=== PATIENT | male | born 1945 | race Caucasian/White ===

== ENCOUNTER 2021-07-27 16:20 | Inpatient (IN) | payer MEDICARE ==
[~2021-07-27] VITALS: Ht 172.7 cm; Wt 95.4 kg
[~2021-07-27 16:20] MED LIST: HYDR1TAB PO; ONDA4TAB9 PO; ZOF4T PO
[2021-07-27] MEDS ORDERED: NORepinephrine 8mg/ 250ml NS 250 ML IV ONE (22:00)
[2021-07-27 22:15] VITALS: BP 116/56
--- NOTE | 2021-07-27 22:30 | NUR ---
Pt arrived to room 2007, transported by [facility] flight team. Pt transferred to hospital bed from [facility] and placed on our monitor and ventilator. Report received from Dylan RANKIN and questions answered. [facility] packet reviewed and placed in chart. Teleconference done with Dr. Trevino and orders received. Levo infusing through central line and CVP being monitored.
[2021-07-27 22:51] LABS: BASOPHILS % (AUTO) 0.2 % (0-1); EOSINOPHILS % (AUTO) 0 % (0-6); HEMATOCRIT 31.9 % (42.0-52.0); HEMOGLOBIN 10.6 g/dl (14.0-17.9); LYMPHOCYTES # (AUTO) 0.3 X10'3 (1.1-4.8); LYMPHOCYTES % (AUTO) 1.7 % (21-51); MEAN CORPUSCULAR HEMOGLOBIN 30.2 PG (27.0-31.0); MEAN CORPUSCULAR HGB CONC 33.2 g/dL (33.0-36.5); MEAN PLATELET VOLUME 8.2 FL (7.4-10.4); MONOCYTES # (AUTO) 0.4 X10'3 (0-0.9); MONOCYTES % (AUTO) 2.2 % (2-12); NEUTROPHILS # (AUTO) 18.2 X10'3 (1.8-7.7); NEUTROPHILS % (AUTO) 95.9 % (42-75); PLATELET COUNT 252 X10'3 (140-440); RED BLOOD COUNT 3.51 X10'6 (4.70-6.10); RED CELL DISTRIBUTION WIDTH 14.9 % (11.5-14.5); WHITE BLOOD COUNT 18.9 X10'3 (4.5-11.0)
[2021-07-27 22:58] LABS: ABG BASE EXCESS -8.6 mmol/L (-2.0-2.0); ABG HCO3 16.4 mmol/L (22.0-26.0); ABG OXYGEN SATURATION 95.1 % (94-97); ABG PCO2 (T) 31.5 mmHg (35.0-48.0); ALLEN'S TEST POSITIVE; FCOHb 0.3 % (0.0-3.9); FO2Hb 94.8 % (94-97); PATIENT TEMPERATURE 36.5; PEEP 5 cm H2O; RESPIRATORY RATE 16 b/min; TIDAL VOLUME 500 mL; TOTAL HEMOGLOBIN 11.7 G/dl (14.0-18.0)
[2021-07-27 23:00] VITALS: BP 116/56
[2021-07-27] MEDS: midazolam 100mg in NS 100ml 100 ML IV PRN (23:36)
[2021-07-27] MEDS: FENTANYL-0.9 % NACL/PF 100 ML IV PRN (23:37)
[2021-07-27] MEDS ORDERED: NORepinephrine 8mg/ 250ml NS 250 ML IV PRN (23:40)
[2021-07-27 23:54] LABS: ALANINE AMINOTRANSFERASE 50 U/L (12-78); ALBUMIN 1.5 G/DL (3.4-5.0); ALBUMIN/GLOBULIN RATIO 0.3 (1.1-1.5); ALKALINE PHOSPHATASE 84 IU/L (46-116); AMYLASE 222 U/L (25-115); ANION GAP 17 (8-16); ASPARTATE AMINO TRANSFERASE 37 U/L (10-37); BILIRUBIN,TOTAL 0.7 MG/DL (0.1-1.0); BLOOD UREA NITROGEN 101 MG/DL (7-18); BUN/CREATININE RATIO 20.4 (5.4-32.0); CALCIUM 7.4 MG/DL (8.5-10.1); CHLORIDE 107 MMOL/L (99-107); CREATININE 4.95 MG/DL (0.60-1.10); GLUCOSE 182 MG/DL (70-104); LIPASE 100 U/L (73-393); POTASSIUM 4.7 MMOL/L (3.5-5.1); SODIUM 139 MMOL/L (135-145); TOTAL CARBON DIOXIDE 15.5 MMOL/L (24-32); TOTAL PROTEIN 5.9 G/DL (6.4-8.2); eGFR 12 ML/MIN
[2021-07-28] VITALS (24 sets, daily range): BP systolic 95–132; BP diastolic 48–63
[2021-07-28] MEDS: piperacillin/tazo 3.375gm/50ml 50 ML IV SCH ×2 (02:04→12:19)
[2021-07-28] MEDS: heparin, porcine 5000 units/ml vial SQ SCH ×2 (02:05→07:44)
[2021-07-28 03:34] LABS: BASOPHILS % (AUTO) 0 % (0-1); EOSINOPHILS % (AUTO) 0 % (0-6); HEMATOCRIT 31.5 % (42.0-52.0); HEMOGLOBIN 10.3 g/dl (14.0-17.9); LYMPHOCYTES # (AUTO) 0.3 X10'3 (1.1-4.8); LYMPHOCYTES % (AUTO) 1.8 % (21-51); MEAN CORPUSCULAR HEMOGLOBIN 29.8 PG (27.0-31.0); MEAN CORPUSCULAR HGB CONC 32.8 g/dL (33.0-36.5); MEAN CORPUSCULAR VOLUME 90.9 FL (78-98); MEAN PLATELET VOLUME 8.3 FL (7.4-10.4); MONOCYTES # (AUTO) 0.5 X10'3 (0-0.9); MONOCYTES % (AUTO) 2.7 % (2-12); NEUTROPHILS # (AUTO) 16.8 X10'3 (1.8-7.7); NEUTROPHILS % (AUTO) 95.5 % (42-75); PLATELET COUNT 240 X10'3 (140-440); RED BLOOD COUNT 3.46 X10'6 (4.70-6.10); WHITE BLOOD COUNT 17.6 X10'3 (4.5-11.0)
[2021-07-28 03:39] LABS: D-DIMER 2.26 MG/L FEU (0-0.50); PARTIAL THROMBOPLASTIN TIME 43 SECONDS (22-32)
[2021-07-28 03:49] LABS: ALANINE AMINOTRANSFERASE 49 U/L (12-78); ALBUMIN 1.4 G/DL (3.4-5.0); ALBUMIN/GLOBULIN RATIO 0.3 (1.1-1.5); ALKALINE PHOSPHATASE 83 IU/L (46-116); ANION GAP 17 (8-16); ASPARTATE AMINO TRANSFERASE 36 U/L (10-37); BILIRUBIN,TOTAL 0.7 MG/DL (0.1-1.0); BLOOD UREA NITROGEN 101 MG/DL (7-18); BUN/CREATININE RATIO 20.6 (5.4-32.0); C-REACTIVE PROTEIN 14.04 MG/DL (0.0-0.5); CALCIUM 7.1 MG/DL (8.5-10.1); CHLORIDE 109 MMOL/L (99-107); CREATININE 4.91 MG/DL (0.60-1.10); GLUCOSE 135 MG/DL (70-104); LACTATE DEHYDROGENASE 366 U/L (85-227); POTASSIUM 4.9 MMOL/L (3.5-5.1); SODIUM 143 MMOL/L (135-145); TOTAL CARBON DIOXIDE 17.2 MMOL/L (24-32); TOTAL PROTEIN 5.5 G/DL (6.4-8.2); eGFR 12 ML/MIN
--- NOTE | 2021-07-28 03:54 | NUR ---
Pt continuing to do well. Does not follow commands but responds to painful stimuli, strong cough with creamy sputum.
[2021-07-28 04:20] LABS: ABG BASE EXCESS -8.1 mmol/L (-2.0-2.0); ABG HCO3 15.8 mmol/L (22.0-26.0); ABG OXYGEN SATURATION 95.5 % (94-97); ABG PCO2 (T) 26.5 mmHg (35.0-48.0); ABG PO2 (T) 69.7 mmHg (75.0-100.0); ALLEN'S TEST POSITIVE; FCOHb 0.3 % (0.0-3.9); FMetHb 0.1 % (0.0-1.5); FO2Hb 95.1 % (94-97); PATIENT TEMPERATURE 35.8; PEEP 5 cm H2O; RESPIRATORY RATE 16 b/min; TIDAL VOLUME 500 mL; TOTAL HEMOGLOBIN 11.9 G/dl (14.0-18.0)
--- NOTE | 2021-07-28 06:27 | NUR ---
Problems reprioritized. Patient report given, questions answered & plan of care reviewed with Archie RANKIN.
[2021-07-28] MEDS: pantoprazole 40 MG vial IV SCH (07:43)
[2021-07-28] MEDS: dexamethasone 4mg/ml inj IV SCH ×2 (07:44→21:53)
[2021-07-28] MEDS ORDERED: dexamethasone inj 6 MG in normal saline 50ml IV soln 50 ML IV SCH (08:00)
[2021-07-28] MEDS: azithromycin 250mg tablet PO SCH (08:21)
--- NOTE | 2021-07-28 08:46 | NUR ---
Initial: Pt intubated with Covid pneumonia, transferred from another facility for evaluation for possible hemodialysis versus CRRT d/t deteriorating renal function per MD note. Pt documented with an OG tube in place though no TF consult at this time. Will place TF recommendations below for if pt to receive nutrition support. Additional TF recommendations below for IF pt to start CRRT. Will continue to follow closely. Recommendations: 1) IF TF, continuous Vital AF via OGT with goal rate of 80 mL/hr. To begin at 20 mL/hr and advance by 20 mL Q8H as tolerated to goal rate 2) IF TF with CRRT, continuous Vital High Protein via OGT with goal rate of 95 mL/hr. To begin at 35 mL/hr and advance by 20 mL Q8H as tolerated to goal rate 3) IF TF, additional water flushes per MD given renal status 4) IF TF, prealbumin q Friday/, daily scaled weights 5) Routine bowel care Addendum: 07/28/21 at [address] Amended: Links added.
[2021-07-28 09:22] LABS: TROPONIN I 2.11 NG/ML (0.0-0.05)
[2021-07-28] MEDS ORDERED: CALCIUM GLUC 1gm/50ml NACL,iso 100 ML IV ONE ×2 (09:50→15:25)
[2021-07-28] MEDS ORDERED: NO HOME MEDS (11:02)
[2021-07-28] MEDS ORDERED: heparin 10,000 units/1 ML INJ IV PRN (13:50)
[2021-07-28] MEDS ORDERED: albumin (Human) 5% 250ml 250 ML IV ONE (15:25)
[2021-07-28 16:37] LABS: BASOPHILS % (AUTO) 0.1 % (0-1); EOSINOPHILS % (AUTO) 0 % (0-6); LYMPHOCYTES # (AUTO) 0.2 X10'3 (1.1-4.8); LYMPHOCYTES % (AUTO) 1.4 % (21-51); MEAN CORPUSCULAR HEMOGLOBIN 30.1 PG (27.0-31.0); MEAN CORPUSCULAR HGB CONC 33.2 g/dL (33.0-36.5); MEAN CORPUSCULAR VOLUME 90.6 FL (78-98); MEAN PLATELET VOLUME 8.4 FL (7.4-10.4); MONOCYTES # (AUTO) 0.3 X10'3 (0-0.9); MONOCYTES % (AUTO) 1.9 % (2-12); NEUTROPHILS # (AUTO) 15.4 X10'3 (1.8-7.7); NEUTROPHILS % (AUTO) 96.6 % (42-75); PLATELET COUNT 245 X10'3 (140-440); RED BLOOD COUNT 3.64 X10'6 (4.70-6.10); RED CELL DISTRIBUTION WIDTH 15.1 % (11.5-14.5); WHITE BLOOD COUNT 15.9 X10'3 (4.5-11.0)
[2021-07-28 16:48] LABS: CLARITY,URINE CLOUDY (Clear); COLOR,URINE YELLOW (Yellow); GLUCOSE, URINE NEGATIVE (Neg); KETONES,URINE NEGATIVE (Neg); LEUKOCYTE ESTERASE ,URINE NEGATIVE (Neg); NITRITES, URINE NEGATIVE (Neg); OCCULT BLOOD,URINE LARGE (Neg); PROTEIN,URINE TRACE mg/dl (Neg); UA COLLECTION TYPE FOLEY CATH; UROBILINOGEN,URINE 0.2 E.U/dL (0.2-1.0)
[2021-07-28 16:51] LABS: PARTIAL THROMBOPLASTIN TIME 38 SECONDS (22-32)
[2021-07-28 16:55] LABS: BACTERIA,URINE FEW /HPF (Neg); MUCUS STRANDS NONE SEEN /LPF (Neg); RBC,URINE 20-50 /HPF (0-2); SQUAMOUS EPITHELIAL CELL,UR FEW /LPF (FEW)
[2021-07-28 16:56] LABS: AMORPHOUS URATES 2+; URIC ACID CRYSTALS 4+ /HPF (NEGATIVE)
[2021-07-28 17:14] LABS: UA EOSINOPHILS NO EOS /HPF
[2021-07-28] MEDS: heparin 25,000 UNIT/250ml bag 250 ML IV SCH (18:00)
[2021-07-28] MEDS: midazolam 100mg in NS 100ml 100 ML IV PRN (20:02)
[2021-07-28] MEDS: atorvastatin 20mg tablet OGT SCH (21:54)
[2021-07-28] MEDS: FENTANYL-0.9 % NACL/PF 100 ML IV PRN (23:15)
[2021-07-29] VITALS (24 sets, daily range): BP systolic 95–131; BP diastolic 45–59
[2021-07-29] MEDS: piperacillin/tazo 3.375gm/50ml 50 ML IV SCH ×2 (00:55→11:42)
[2021-07-29] MEDS: mineral oil/petrolatum ophthal oint EACHEYE SCH ×4 (02:00→20:14)
[2021-07-29 02:56] LABS: D-DIMER 2.09 MG/L FEU (0-0.50)
[2021-07-29 03:01] LABS: ALANINE AMINOTRANSFERASE 49 U/L (12-78); ALBUMIN 1.5 G/DL (3.4-5.0); ALBUMIN/GLOBULIN RATIO 0.3 (1.1-1.5); ALKALINE PHOSPHATASE 95 IU/L (46-116); AMYLASE 146 U/L (25-115); ANION GAP 13 (8-16); ASPARTATE AMINO TRANSFERASE 41 U/L (10-37); BILIRUBIN,DIRECT 0.7 MG/DL (0-0.3); BLOOD UREA NITROGEN 124 MG/DL (7-18); BUN/CREATININE RATIO 24.1 (5.4-32.0); C-REACTIVE PROTEIN 6.81 MG/DL (0.0-0.5); CALCIUM 7.9 MG/DL (8.5-10.1); CHLORIDE 112 MMOL/L (99-107); CREATININE 5.15 MG/DL (0.60-1.10); GLUCOSE 112 MG/DL (70-104); LACTATE DEHYDROGENASE 404 U/L (85-227); LIPASE 147 U/L (73-393); PHOSPHORUS 5.7 MG/DL (2.3-4.5); POTASSIUM 5.5 MMOL/L (3.5-5.1); SODIUM 143 MMOL/L (135-145); TOTAL CARBON DIOXIDE 18.4 MMOL/L (24-32); TOTAL PROTEIN 5.8 G/DL (6.4-8.2); eGFR 11 ML/MIN
[2021-07-29 03:03] LABS: TROPONIN I 2.31 NG/ML (0.0-0.05)
[2021-07-29 04:04] LABS: ABG BASE EXCESS -9.7 mmol/L (-2.0-2.0); ABG HCO3 15.3 mmol/L (22.0-26.0); ABG PCO2 (T) 29.1 mmHg (35.0-48.0); ABG PO2 (T) 62.2 mmHg (75.0-100.0); ALLEN'S TEST POSITIVE; FCOHb 0.2 % (0.0-3.9); FMetHb 0.3 % (0.0-1.5); FO2Hb 91.5 % (94-97); PATIENT TEMPERATURE 35.9; PEEP 5 cm H2O; RESPIRATORY RATE 16 b/min; TIDAL VOLUME 500 mL; TOTAL HEMOGLOBIN 11.2 G/dl (14.0-18.0)
[2021-07-29 05:06] LABS: BASOPHILS % (AUTO) 0 % (0-1); EOSINOPHILS % (AUTO) 0 % (0-6); HEMATOCRIT 31.1 % (42.0-52.0); HEMOGLOBIN 10.3 g/dl (14.0-17.9); LYMPHOCYTES # (AUTO) 0.3 X10'3 (1.1-4.8); LYMPHOCYTES % (AUTO) 2.3 % (21-51); MEAN CORPUSCULAR HEMOGLOBIN 30.1 PG (27.0-31.0); MEAN CORPUSCULAR HGB CONC 33.2 g/dL (33.0-36.5); MEAN CORPUSCULAR VOLUME 90.9 FL (78-98); MEAN PLATELET VOLUME 8.5 FL (7.4-10.4); MONOCYTES # (AUTO) 0.2 X10'3 (0-0.9); MONOCYTES % (AUTO) 2.1 % (2-12); NEUTROPHILS # (AUTO) 11.1 X10'3 (1.8-7.7); NEUTROPHILS % (AUTO) 95.6 % (42-75); PLATELET COUNT 204 X10'3 (140-440); RED BLOOD COUNT 3.42 X10'6 (4.70-6.10); RED CELL DISTRIBUTION WIDTH 14.9 % (11.5-14.5); WHITE BLOOD COUNT 11.6 X10'3 (4.5-11.0)
--- NOTE | 2021-07-29 06:48 | NUR ---
[facility]. I have received report from Blanca RANKIN and had the opportunity to ask questions and assume patient care. Addendum: 07/29/21 at 0648 by Sunita Aguila RN Amended: Links added.
--- NOTE | 2021-07-29 06:51 | NUR ---
Problems reprioritized. Patient report given, questions answered & plan of care reviewed with Sunita RANKIN.
[2021-07-29] MEDS: pantoprazole 40 MG vial IV SCH (08:13)
[2021-07-29] MEDS: aspirin 81mg tab.chew OGT SCH (08:14)
[2021-07-29] MEDS: azithromycin 250mg tablet PO SCH (08:14)
[2021-07-29] MEDS: dexamethasone 4mg/ml inj IV SCH ×2 (08:14→20:14)
[2021-07-29] MEDS: FENTANYL-0.9 % NACL/PF 100 ML IV PRN ×2 (08:17→19:04)
--- NOTE | 2021-07-29 08:54 | NUR ---
Removed current esophageal temp. probe and replaced and obtained new CXR per Dr. oHpe as it was in right lung.
--- NOTE | 2021-07-29 10:35 | NUR ---
Esophageal temp. probe removed as it is in the lung again per Dr. Hope.
--- NOTE | 2021-07-29 12:39 | NUR ---
Dr. Barnes in to see pt. Notified of low HR and that pt. is off Levo. Provided pt's family's number per his request.
--- NOTE | 2021-07-29 14:36 | NUR ---
TF Consult: Pt remains intubated and sedated. Per RN, pt has not begun HD or CRRT at this time and TF are to start today, see recs below. No BM documented. Will monitor for TF tolerance and adjust needs as medically indicated. Recommendations: 1) Continuous TF using Vital AF via OGT with goal rate of 80 mL/hr to provide 1920ml volume, 2304kcals, 144g protein, 1555ml H2O. To begin at 20 mL/hr and advance by 20 mL Q8H as tolerated to goal rate 2) IF TF with CRRT, continuous Vital High Protein via OGT with goal rate of 95 mL/hr. 3) Additional water flushes per MD given renal status 4) Prealbumin q Friday/, daily scaled weights 5) Routine bowel care Addendum: 07/29/21 at [address] Amended: Links added.
[2021-07-29] MEDS: heparin 25,000 UNIT/250ml bag 250 ML IV SCH (14:50)
--- NOTE | 2021-07-29 15:56 | NUR ---
TF started at 1530. Dr. Ramos in to see pt.
[2021-07-29] MEDS ORDERED: ringers solution, lacted 1,000 ML IV ONE (17:40)
--- NOTE | 2021-07-29 18:16 | NUR ---
Patient in room CICU 2007. I have received report from Sunita RANKIN and had the opportunity to ask questions and assume patient care.
--- NOTE | 2021-07-29 18:25 | NUR ---
Problems reprioritized. Patient report given, questions answered & plan of care reviewed with Bryan RANKIN. Addendum: 07/29/21 at 1826 by Sunita Aguila RN Amended: Links added.
[2021-07-29] MEDS: lactobacillus rhamnosus 10,000 MMU CELLS/CAPSULE PO SCH (20:14)
[2021-07-29] MEDS: atorvastatin 20mg tablet OGT SCH (20:14)
[2021-07-30] VITALS (24 sets, daily range): BP systolic 118–152; BP diastolic 47–73
[2021-07-30] MEDS: piperacillin/tazo 3.375gm/50ml 50 ML IV SCH ×3 (00:33→23:33)
[2021-07-30 01:56] LABS: BASOPHILS % (AUTO) 0 % (0-1); EOSINOPHILS % (AUTO) 0 % (0-6); HEMATOCRIT 33.6 % (42.0-52.0); HEMOGLOBIN 11.3 g/dl (14.0-17.9); LYMPHOCYTES # (AUTO) 0.3 X10'3 (1.1-4.8); LYMPHOCYTES % (AUTO) 2.1 % (21-51); MEAN CORPUSCULAR HGB CONC 33.6 g/dL (33.0-36.5); MEAN CORPUSCULAR VOLUME 89.1 FL (78-98); MONOCYTES # (AUTO) 0.5 X10'3 (0-0.9); MONOCYTES % (AUTO) 3.5 % (2-12); NEUTROPHILS # (AUTO) 12.5 X10'3 (1.8-7.7); NEUTROPHILS % (AUTO) 94.4 % (42-75); PLATELET COUNT 207 X10'3 (140-440); RED BLOOD COUNT 3.77 X10'6 (4.70-6.10); WHITE BLOOD COUNT 13.3 X10'3 (4.5-11.0)
[2021-07-30] MEDS: mineral oil/petrolatum ophthal oint EACHEYE SCH ×4 (02:07→19:46)
[2021-07-30 02:14] LABS: D-DIMER 2.18 MG/L FEU (0-0.50)
[2021-07-30 02:30] LABS: ALANINE AMINOTRANSFERASE 86 U/L (12-78); ALBUMIN 1.6 G/DL (3.4-5.0); ALBUMIN/GLOBULIN RATIO 0.4 (1.1-1.5); ALKALINE PHOSPHATASE 107 IU/L (46-116); ANION GAP 15 (8-16); ASPARTATE AMINO TRANSFERASE 65 U/L (10-37); BILIRUBIN,DIRECT 1.1 MG/DL (0-0.3); BILIRUBIN,TOTAL 1.5 MG/DL (0.1-1.0); BLOOD UREA NITROGEN 136 MG/DL (7-18); BUN/CREATININE RATIO 28.4 (5.4-32.0); C-REACTIVE PROTEIN 3.39 MG/DL (0.0-0.5); CALCIUM 8.2 MG/DL (8.5-10.1); CREATININE 4.79 MG/DL (0.60-1.10); GLUCOSE 122 MG/DL (70-104); LACTATE DEHYDROGENASE 342 U/L (85-227); MAGNESIUM 2.8 MG/DL (1.5-2.4); PHOSPHORUS 5.9 MG/DL (2.3-4.5); POTASSIUM 5.6 MMOL/L (3.5-5.1); PREALBUMIN 22.2 MG/DL (19-36); SODIUM 146 MMOL/L (135-145); TOTAL CARBON DIOXIDE 16.9 MMOL/L (24-32); TOTAL PROTEIN 6.1 G/DL (6.4-8.2); eGFR 12 ML/MIN
[2021-07-30 02:32] LABS: CHLORIDE 114 MMOL/L (99-107)
[2021-07-30 03:49] LABS: ABG BASE EXCESS -9.4 mmol/L (-2.0-2.0); ABG HCO3 14.9 mmol/L (22.0-26.0); ABG OXYGEN SATURATION 89.2 % (94-97); ABG PCO2 (T) 26.8 mmHg (35.0-48.0); ABG PO2 (T) 54.1 mmHg (75.0-100.0); ALLEN'S TEST Yes; FCOHb 0.3 % (0.0-3.9); FO2Hb 88.9 % (94-97); PATIENT TEMPERATURE 36.1; PEEP 5 cm H2O; RESPIRATORY RATE 16 b/min; TIDAL VOLUME 500 mL; TOTAL HEMOGLOBIN 12.3 G/dl (14.0-18.0)
[2021-07-30] MEDS: FENTANYL-0.9 % NACL/PF 100 ML IV PRN ×3 (04:31→22:12)
--- NOTE | 2021-07-30 06:21 | NUR ---
Patient in room CICU 2007. I have received report from Bryan RANKIN and had the opportunity to ask questions and assume patient care.
--- NOTE | 2021-07-30 06:23 | NUR ---
Problems reprioritized. Patient report given, questions answered & plan of care reviewed with Sunita RANKIN.
[2021-07-30] MEDS: aspirin 81mg tab.chew OGT SCH (07:41)
[2021-07-30] MEDS: dexamethasone 4mg/ml inj IV SCH ×2 (07:41→19:46)
[2021-07-30] MEDS: lactobacillus rhamnosus 10,000 MMU CELLS/CAPSULE PO SCH ×2 (07:41→19:46)
[2021-07-30] MEDS: pantoprazole 40 MG vial IV SCH (07:41)
[2021-07-30] MEDS: midazolam 100mg in NS 100ml 100 ML IV PRN (08:10)
--- NOTE | 2021-07-30 11:15 | NUR ---
Dr. Monteiro to see pt. Told RN to please cancel new CDIFF order placed by Dr. Hope.
[2021-07-30] MEDS: heparin, porcine 5000 units/ml vial SQ SCH ×2 (17:41→23:33)
--- NOTE | 2021-07-30 18:11 | NUR ---
Problems reprioritized. Patient report given, questions answered & plan of care reviewed with Bryan RANKIN. Addendum: 07/30/21 at 1812 by Sunita Aguila RN Amended: Links added.
--- NOTE | 2021-07-30 18:20 | NUR ---
Patient in room CICU 2007. I have received report from Sunita RANKIN and had the opportunity to ask questions and assume patient care.
[2021-07-30] MEDS: QUEtiapine 25mg tablet PO SCH (19:45)
[2021-07-30] MEDS: docusate sodium 100mg/10ml UD cup PO SCH (19:45)
[2021-07-30] MEDS ORDERED: heparin, porcine 5000 units/ml vial SQ SCH (20:00)
[2021-07-30] MEDS: atorvastatin 20mg tablet OGT SCH (20:03)
[2021-07-31] VITALS (24 sets, daily range): BP systolic 111–174; BP diastolic 55–78
[2021-07-31] MEDS: mineral oil/petrolatum ophthal oint EACHEYE SCH ×4 (02:13→19:54)
[2021-07-31 03:01] LABS: ABG BASE EXCESS -10.4 mmol/L (-2.0-2.0); ABG HCO3 13.7 mmol/L (22.0-26.0); ABG OXYGEN SATURATION 91.8 % (94-97); ABG PCO2 (T) 25.2 mmHg (35.0-48.0); ABG PO2 (T) 64.8 mmHg (75.0-100.0); ALLEN'S TEST POSITIVE; FCOHb 0.3 % (0.0-3.9); FMetHb 0.3 % (0.0-1.5); FO2Hb 91.2 % (94-97); PATIENT TEMPERATURE 36.5; PEEP 5 cm H2O; RESPIRATORY RATE 16 b/min; TIDAL VOLUME 500 mL; TOTAL HEMOGLOBIN 12.4 G/dl (14.0-18.0)
[2021-07-31 03:06] LABS: BASOPHILS % (AUTO) 0 % (0-1); EOSINOPHILS % (AUTO) 0 % (0-6); HEMATOCRIT 34.5 % (42.0-52.0); HEMOGLOBIN 11.5 g/dl (14.0-17.9); LYMPHOCYTES # (AUTO) 0.2 X10'3 (1.1-4.8); LYMPHOCYTES % (AUTO) 1.6 % (21-51); MEAN CORPUSCULAR HEMOGLOBIN 29.8 PG (27.0-31.0); MEAN CORPUSCULAR HGB CONC 33.4 g/dL (33.0-36.5); MEAN CORPUSCULAR VOLUME 89.2 FL (78-98); MEAN PLATELET VOLUME 9.1 FL (7.4-10.4); MONOCYTES # (AUTO) 0.5 X10'3 (0-0.9); MONOCYTES % (AUTO) 3.6 % (2-12); NEUTROPHILS # (AUTO) 12.3 X10'3 (1.8-7.7); NEUTROPHILS % (AUTO) 94.8 % (42-75); PLATELET COUNT 197 X10'3 (140-440); RED BLOOD COUNT 3.86 X10'6 (4.70-6.10); RED CELL DISTRIBUTION WIDTH 15.3 % (11.5-14.5)
[2021-07-31 03:11] LABS: D-DIMER 4.12 MG/L FEU (0-0.50)
[2021-07-31 03:19] LABS: ALANINE AMINOTRANSFERASE 135 U/L (12-78); ALBUMIN 1.7 G/DL (3.4-5.0); ALBUMIN/GLOBULIN RATIO 0.4 (1.1-1.5); ALKALINE PHOSPHATASE 115 IU/L (46-116); ANION GAP 14 (8-16); ASPARTATE AMINO TRANSFERASE 79 U/L (10-37); BILIRUBIN,DIRECT 0.9 MG/DL (0-0.3); BILIRUBIN,TOTAL 1.2 MG/DL (0.1-1.0); BLOOD UREA NITROGEN 133 MG/DL (7-18); BUN/CREATININE RATIO 34.1 (5.4-32.0); CALCIUM 8.6 MG/DL (8.5-10.1); CHLORIDE 117 MMOL/L (99-107); GLUCOSE 144 MG/DL (70-104); MAGNESIUM 2.3 MG/DL (1.5-2.4); PHOSPHORUS 5.4 MG/DL (2.3-4.5); POTASSIUM 5.9 MMOL/L (3.5-5.1); SODIUM 149 MMOL/L (135-145); TOTAL CARBON DIOXIDE 17.7 MMOL/L (24-32); TOTAL PROTEIN 6.4 G/DL (6.4-8.2); eGFR 15 ML/MIN
[2021-07-31] MEDS: FENTANYL-0.9 % NACL/PF 100 ML IV PRN ×3 (05:38→21:30)
--- NOTE | 2021-07-31 06:13 | NUR ---
Problems reprioritized. Patient report given, questions answered & plan of care reviewed with Sunita RANKIN.
--- NOTE | 2021-07-31 06:14 | NUR ---
[facility] I have received report from Bryan RANKIN and had the opportunity to ask questions and assume patient care. Addendum: 07/31/21 at 0615 by Sunita Aguila RN Amended: Links added.
[2021-07-31] MEDS: QUEtiapine 25mg tablet PO SCH ×2 (07:43→19:39)
[2021-07-31] MEDS: aspirin 81mg tab.chew OGT SCH (07:43)
[2021-07-31] MEDS: docusate sodium 100mg/10ml UD cup PO SCH ×2 (07:43→19:39)
[2021-07-31] MEDS: lactobacillus rhamnosus 10,000 MMU CELLS/CAPSULE PO SCH ×2 (07:43→19:39)
[2021-07-31] MEDS: pantoprazole 40 MG vial IV SCH (07:43)
[2021-07-31] MEDS: heparin, porcine 5000 units/ml vial SQ SCH ×2 (07:44→16:25)
[2021-07-31] MEDS: dexamethasone sod phosphate 10mg/ml inj IV SCH ×2 (08:02→19:40)
--- NOTE | 2021-07-31 10:02 | NUR ---
Received a call from pt's home pharmacy who confirmed pt. does not take any routine meds. Dr. Herminia rodriguez.
--- NOTE | 2021-07-31 11:09 | NUR ---
F/u 07/31: Noted serum Na 149 and to continue hydration per metal leaf layer note; educational technician agreeable w/ free water flushes to start today. Recs below. Recommendations: 1) Continuous TF using Vital AF via OGT with goal rate of 80 mL/hr to provide 1920ml volume, 2304kcals, 144g protein, 1555ml H2O. To begin at 20 mL/hr and advance by 20 mL Q8H as tolerated to goal rate 2) Additional water flushes 200ml Q4H; monitor for adjustment needs 3) Prealbumin q Friday/, daily scaled weights 4) Routine bowel care Addendum: 07/31/21 at [address] Amended: Links added.
[2021-07-31] MEDS: piperacillin/tazo 3.375gm/50ml 50 ML IV SCH (12:30)
[2021-07-31] MEDS: midazolam 100mg in NS 100ml 100 ML IV PRN (12:42)
[2021-07-31] MEDS: sodium bicarbonate (8.4%) inj. 150 MEQ in dextrose 5%-water 1,000 ML IV SCH (12:57)
--- NOTE | 2021-07-31 18:00 | NUR ---
Problems reprioritized. Patient report given, questions answered & plan of care reviewed with NOC RN.
--- NOTE | 2021-07-31 18:16 | NUR ---
Patient in room CICU 2007. I have received report from Sunita RANKIN and had the opportunity to ask questions and assume patient care.
[2021-07-31] MEDS: atorvastatin 20mg tablet OGT SCH (19:53)
[2021-08-01] VITALS (24 sets, daily range): BP systolic 112–179; BP diastolic 54–81
[2021-08-01] MEDS: heparin, porcine 5000 units/ml vial SQ SCH ×4 (00:22→23:46)
[2021-08-01] MEDS: mineral oil/petrolatum ophthal oint EACHEYE SCH ×4 (02:15→20:06)
[2021-08-01 02:55] LABS: BASOPHILS % (AUTO) 0.1 % (0-1); EOSINOPHILS % (AUTO) 0 % (0-6); HEMATOCRIT 32.6 % (42.0-52.0); HEMOGLOBIN 10.8 g/dl (14.0-17.9); LYMPHOCYTES # (AUTO) 0.3 X10'3 (1.1-4.8); LYMPHOCYTES % (AUTO) 1.8 % (21-51); MEAN CORPUSCULAR HEMOGLOBIN 29.6 PG (27.0-31.0); MEAN CORPUSCULAR HGB CONC 33.1 g/dL (33.0-36.5); MEAN CORPUSCULAR VOLUME 89.6 FL (78-98); MEAN PLATELET VOLUME 9.5 FL (7.4-10.4); MONOCYTES # (AUTO) 0.4 X10'3 (0-0.9); MONOCYTES % (AUTO) 2.6 % (2-12); NEUTROPHILS # (AUTO) 13.6 X10'3 (1.8-7.7); NEUTROPHILS % (AUTO) 95.5 % (42-75); PLATELET COUNT 191 X10'3 (140-440); RED BLOOD COUNT 3.63 X10'6 (4.70-6.10); WHITE BLOOD COUNT 14.2 X10'3 (4.5-11.0)
[2021-08-01 03:20] LABS: D-DIMER 4.91 MG/L FEU (0-0.50)
[2021-08-01 03:33] LABS: ALANINE AMINOTRANSFERASE 112 U/L (12-78); ALBUMIN 1.5 G/DL (3.4-5.0); ALBUMIN/GLOBULIN RATIO 0.3 (1.1-1.5); ALKALINE PHOSPHATASE 110 IU/L (46-116); ANION GAP 14 (8-16); ASPARTATE AMINO TRANSFERASE 43 U/L (10-37); BILIRUBIN,DIRECT 0.5 MG/DL (0-0.3); BILIRUBIN,TOTAL 0.9 MG/DL (0.1-1.0); BLOOD UREA NITROGEN 121 MG/DL (7-18); BUN/CREATININE RATIO 37.9 (5.4-32.0); C-REACTIVE PROTEIN 8.71 MG/DL (0.0-0.5); CALCIUM 8.7 MG/DL (8.5-10.1); CHLORIDE 119 MMOL/L (99-107); CREATININE 3.19 MG/DL (0.60-1.10); GLUCOSE 188 MG/DL (70-104); MAGNESIUM 2.4 MG/DL (1.5-2.4); PHOSPHORUS 5.3 MG/DL (2.3-4.5); POTASSIUM 5.5 MMOL/L (3.5-5.1); SODIUM 153 MMOL/L (135-145); TOTAL CARBON DIOXIDE 20.1 MMOL/L (24-32); TOTAL PROTEIN 6.2 G/DL (6.4-8.2); eGFR 19 ML/MIN
[2021-08-01 03:36] LABS: ABG BASE EXCESS -6.1 mmol/L (-2.0-2.0); ABG HCO3 17.4 mmol/L (22.0-26.0); ABG OXYGEN SATURATION 93.3 % (94-97); ABG PCO2 (T) 27.9 mmHg (35.0-48.0); ABG PO2 (T) 66.7 mmHg (75.0-100.0); ALLEN'S TEST POSITIVE; FCOHb 0.3 % (0.0-3.9); FMetHb 0.3 % (0.0-1.5); FO2Hb 92.7 % (94-97); PATIENT TEMPERATURE 36.4; PEEP 5 cm H2O; RESPIRATORY RATE 1 b/min; TIDAL VOLUME 500 mL; TOTAL HEMOGLOBIN 11.7 G/dl (14.0-18.0)
[2021-08-01] MEDS: sodium bicarbonate (8.4%) inj. 150 MEQ in dextrose 5%-water 1,000 ML IV SCH ×2 (04:00→19:57)
[2021-08-01] MEDS: FENTANYL-0.9 % NACL/PF 100 ML IV PRN ×3 (04:00→21:39)
--- NOTE | 2021-08-01 06:23 | NUR ---
Problems reprioritized. Patient report given, questions answered & plan of care reviewed with Teofilo RANKIN.
[2021-08-01] MEDS: aspirin 81mg tab.chew OGT SCH (08:05)
[2021-08-01] MEDS: QUEtiapine 25mg tablet PO SCH (08:05)
[2021-08-01] MEDS: lactobacillus rhamnosus 10,000 MMU CELLS/CAPSULE PO SCH ×2 (08:05→19:58)
[2021-08-01] MEDS: pantoprazole 40 MG vial IV SCH (08:05)
[2021-08-01] MEDS: docusate sodium 100mg/10ml UD cup PO SCH (08:06)
[2021-08-01] MEDS: dexamethasone sod phosphate 10mg/ml inj IV SCH ×2 (08:07→19:59)
[2021-08-01] MEDS: midazolam 100mg in NS 100ml 100 ML IV PRN (10:38)
--- NOTE | 2021-08-01 12:16 | NUR ---
F/u 08/01: Pt remains intubated and sedated, though plan for extubation today per Optometric Technician at rounds. TF continues to run at goal w/ last documented GRV 265ml which is WNL. Per RN, pt w/ low bicarb yesterday, started on Sodium Bicarb drip w/ D5 at 75ml/hr providing 306kcals. TF not adjusted as bicarb drip may stop today per RN. Will continue to monitor. Recommendations: 1) Continuous TF using Vital AF via OGT with goal rate of 80 mL/hr to provide 1920ml volume, 2304kcals, 144g protein, 1555ml H2O. To begin at 20 mL/hr and advance by 20 mL Q8H as tolerated to goal rate 2) Additional water flushes 200ml Q4H; monitor for adjustment needs 3) Prealbumin q Friday/, daily scaled weights 4) Routine bowel care Addendum: 08/01/21 at [address] Amended: Links added.
[2021-08-01] MEDS ORDERED: thiamine inj. 100 MG in normal saline 100ml IV soln 100 ML IV ONE (13:00)
[2021-08-01] MEDS ORDERED: folic acid 1mg/0.2ml inj IV ONE (13:00)
[2021-08-01] MEDS: MULTIVIT-MIN/FERROUS GLUCONATE 9 MG/15 ML LIQUID OGT SCH (14:40)
[2021-08-01] MEDS: dexmedetomidin/NS 400mcg/100ml 100 ML IV SCH ×2 (15:49→23:57)
--- NOTE | 2021-08-01 18:30 | NUR ---
Dr Hope performed bronchoscopy with 2 RT and 1 RN assist, suctioned copious amounts light gan secretions, pt tolerated procedure well versed boluses of 2 mg x 2 given and fentanyl 25mcg x2 given, samples obtained, left with Rachelle rodas RN. Report given to Hamzah Fischer RN.
[2021-08-01] MEDS: QUEtiapine 25mg tablet OGT SCH (19:59)
[2021-08-01] MEDS: docusate sodium 100mg/10ml UD cup OGT SCH (20:00)
[2021-08-01] MEDS: atorvastatin 20mg tablet OGT SCH (20:05)
[2021-08-01 22:15] LABS: BAL RBC 0 /CU MM
[2021-08-01 22:22] LABS: BAL EOS CT 0 %; BAL LYMPH CT 0 %; BAL WBC 5150 /CU MM
[2021-08-02] VITALS (23 sets, daily range): BP systolic 106–187; BP diastolic 50–62
[2021-08-02] MEDS: FENTANYL-0.9 % NACL/PF 100 ML IV PRN ×3 (02:44→19:13)
[2021-08-02] MEDS: mineral oil/petrolatum ophthal oint EACHEYE SCH ×4 (02:46→20:00)
[2021-08-02 03:22] LABS: BASOPHILS % (AUTO) 0.1 % (0-1); EOSINOPHILS % (AUTO) 0.2 % (0-6); HEMOGLOBIN 10.4 g/dl (14.0-17.9); LYMPHOCYTES # (AUTO) 0.3 X10'3 (1.1-4.8); LYMPHOCYTES % (AUTO) 2.1 % (21-51); MEAN CORPUSCULAR HEMOGLOBIN 29.6 PG (27.0-31.0); MEAN CORPUSCULAR HGB CONC 32.6 g/dL (33.0-36.5); MEAN CORPUSCULAR VOLUME 90.8 FL (78-98); MEAN PLATELET VOLUME 9.9 FL (7.4-10.4); MONOCYTES # (AUTO) 0.4 X10'3 (0-0.9); MONOCYTES % (AUTO) 2.9 % (2-12); NEUTROPHILS # (AUTO) 13.8 X10'3 (1.8-7.7); NEUTROPHILS % (AUTO) 94.7 % (42-75); PLATELET COUNT 203 X10'3 (140-440); RED BLOOD COUNT 3.52 X10'6 (4.70-6.10); RED CELL DISTRIBUTION WIDTH 14.8 % (11.5-14.5); WHITE BLOOD COUNT 14.5 X10'3 (4.5-11.0)
[2021-08-02 03:42] LABS: ABG BASE EXCESS 1.1 mmol/L (-2.0-2.0); ABG HCO3 24.5 mmol/L (22.0-26.0); ABG OXYGEN SATURATION 92.8 % (94-97); ABG PCO2 (T) 34.6 mmHg (35.0-48.0); ABG PO2 (T) 66.4 mmHg (75.0-100.0); ALLEN'S TEST POSITIVE; FCOHb 0.3 % (0.0-3.9); FMetHb 0.3 % (0.0-1.5); FO2Hb 92.2 % (94-97); PATIENT TEMPERATURE 37.2; PEEP 5 cm H2O; RESPIRATORY RATE 16 b/min; TIDAL VOLUME 500 mL; TOTAL HEMOGLOBIN 11.3 G/dl (14.0-18.0)
[2021-08-02 03:44] LABS: ALANINE AMINOTRANSFERASE 121 U/L (12-78); ALBUMIN 1.4 G/DL (3.4-5.0); ALBUMIN/GLOBULIN RATIO 0.3 (1.1-1.5); ALKALINE PHOSPHATASE 116 IU/L (46-116); ANION GAP 5 (8-16); ASPARTATE AMINO TRANSFERASE 55 U/L (10-37); BILIRUBIN,DIRECT 0.4 MG/DL (0-0.3); BILIRUBIN,TOTAL 0.7 MG/DL (0.1-1.0); BLOOD UREA NITROGEN 91 MG/DL (7-18); BUN/CREATININE RATIO 39.1 (5.4-32.0); C-REACTIVE PROTEIN 7.84 MG/DL (0.0-0.5); CALCIUM 8.3 MG/DL (8.5-10.1); CHLORIDE 116 MMOL/L (99-107); CREATININE 2.33 MG/DL (0.60-1.10); GLUCOSE 145 MG/DL (70-104); PHOSPHORUS 4.6 MG/DL (2.3-4.5); PREALBUMIN 21.9 MG/DL (19-36); SODIUM 148 MMOL/L (135-145); TOTAL CARBON DIOXIDE 26.7 MMOL/L (24-32); TOTAL PROTEIN 5.9 G/DL (6.4-8.2); eGFR 28 ML/MIN
[2021-08-02 04:33] LABS: D-DIMER 5.17 MG/L FEU (0-0.50)
--- NOTE | 2021-08-02 06:31 | NUR ---
Problems reprioritized. Patient report given, questions answered & plan of care reviewed with Archie.
[2021-08-02] MEDS: lansoprazole 15mg solutab OGT SCH (07:23)
[2021-08-02] MEDS: QUEtiapine 25mg tablet OGT SCH ×2 (07:24→21:10)
[2021-08-02] MEDS: MULTIVIT-MIN/FERROUS GLUCONATE 9 MG/15 ML LIQUID OGT SCH (07:24)
[2021-08-02] MEDS: thiamine 100mg tablet OGT SCH (07:24)
[2021-08-02] MEDS: docusate sodium 100mg/10ml UD cup OGT SCH ×2 (07:24→21:09)
[2021-08-02] MEDS: lactobacillus rhamnosus 10,000 MMU CELLS/CAPSULE PO SCH ×2 (07:24→21:10)
[2021-08-02] MEDS: folic acid 1mg tablet PO SCH (07:24)
[2021-08-02] MEDS: dexamethasone sod phosphate 10mg/ml inj IV SCH ×2 (07:25→21:09)
[2021-08-02] MEDS: heparin, porcine 5000 units/ml vial SQ SCH ×2 (07:25→16:56)
[2021-08-02] MEDS: aspirin 81mg tab.chew OGT SCH (07:26)
[2021-08-02] MEDS: dexmedetomidin/NS 400mcg/100ml 100 ML IV SCH ×3 (09:41→21:10)
[2021-08-02] MEDS: midazolam 100mg in NS 100ml 100 ML IV PRN (15:41)
[2021-08-02] MEDS: atorvastatin 20mg tablet OGT SCH (21:10)
[2021-08-03] VITALS (24 sets, daily range): BP systolic 118–167; BP diastolic 47–70
[2021-08-03] MEDS: methylPREDNISolone sod succ 125mg/2ml vial IV SCH ×3 (00:42→15:06)
[2021-08-03] MEDS: mineral oil/petrolatum ophthal oint EACHEYE SCH ×4 (02:00→20:36)
[2021-08-03] MEDS: midazolam 100mg in NS 100ml 100 ML IV PRN ×3 (03:34→21:36)
[2021-08-03] MEDS: FENTANYL-0.9 % NACL/PF 100 ML IV PRN ×4 (03:59→21:36)
--- NOTE | 2021-08-03 06:00 | NUR ---
Patient in room CICU 2007. I have received report from MAC RN and had the opportunity to ask questions and assume patient care.
[2021-08-03 07:14] LABS: D-DIMER 5.75 MG/L FEU (0-0.50)
[2021-08-03 07:29] LABS: C-REACTIVE PROTEIN 4.63 MG/DL (0.0-0.5)
[2021-08-03 08:01] LABS: ALANINE AMINOTRANSFERASE 288 U/L (12-78); ALBUMIN 1.4 G/DL (3.4-5.0); ALBUMIN/GLOBULIN RATIO 0.3 (1.1-1.5); ALKALINE PHOSPHATASE 157 IU/L (46-116); ANION GAP 10 (8-16); ASPARTATE AMINO TRANSFERASE 153 U/L (10-37); BILIRUBIN,TOTAL 0.8 MG/DL (0.1-1.0); BLOOD UREA NITROGEN 94 MG/DL (7-18); BUN/CREATININE RATIO 45.6 (5.4-32.0); CALCIUM 8.8 MG/DL (8.5-10.1); CHLORIDE 120 MMOL/L (99-107); CREATININE 2.06 MG/DL (0.60-1.10); GLUCOSE 180 MG/DL (70-104); MAGNESIUM 2.1 MG/DL (1.5-2.4); PHOSPHORUS 4.5 MG/DL (2.3-4.5); POTASSIUM 5.4 MMOL/L (3.5-5.1); SODIUM 153 MMOL/L (135-145); TOTAL CARBON DIOXIDE 23.1 MMOL/L (24-32); TOTAL PROTEIN 6.2 G/DL (6.4-8.2); eGFR 32 ML/MIN
[2021-08-03 08:16] LABS: BASOPHILS % (AUTO) 0.1 % (0-1); EOSINOPHILS % (AUTO) 0 % (0-6); HEMATOCRIT 32.3 % (42.0-52.0); HEMOGLOBIN 10.8 g/dl (14.0-17.9); LYMPHOCYTES # (AUTO) 0.2 X10'3 (1.1-4.8); LYMPHOCYTES % (AUTO) 1.7 % (21-51); MEAN CORPUSCULAR HEMOGLOBIN 30.3 PG (27.0-31.0); MEAN CORPUSCULAR HGB CONC 33.4 g/dL (33.0-36.5); MEAN CORPUSCULAR VOLUME 90.8 FL (78-98); MEAN PLATELET VOLUME 10.1 FL (7.4-10.4); MONOCYTES # (AUTO) 0.2 X10'3 (0-0.9); MONOCYTES % (AUTO) 1.4 % (2-12); NEUTROPHILS # (AUTO) 12.4 X10'3 (1.8-7.7); NEUTROPHILS % (AUTO) 96.8 % (42-75); PLATELET COUNT 216 X10'3 (140-440); RED BLOOD COUNT 3.56 X10'6 (4.70-6.10); RED CELL DISTRIBUTION WIDTH 14.8 % (11.5-14.5); WHITE BLOOD COUNT 12.9 X10'3 (4.5-11.0)
[2021-08-03] MEDS ORDERED: PATIROMER CALCIUM SORBITEX 8.4 GM POWD.PACK PO ONE (08:45)
[2021-08-03] MEDS: thiamine 100mg tablet OGT SCH (08:46)
[2021-08-03] MEDS: folic acid 1mg tablet PO SCH (08:46)
[2021-08-03] MEDS: docusate sodium 100mg/10ml UD cup OGT SCH ×2 (08:46→20:36)
[2021-08-03] MEDS: MULTIVIT-MIN/FERROUS GLUCONATE 9 MG/15 ML LIQUID OGT SCH (08:46)
[2021-08-03] MEDS: aspirin 81mg tab.chew OGT SCH (08:47)
[2021-08-03] MEDS: lactobacillus rhamnosus 10,000 MMU CELLS/CAPSULE PO SCH ×2 (08:47→20:36)
[2021-08-03] MEDS: lansoprazole 15mg solutab OGT SCH (08:47)
[2021-08-03] MEDS: QUEtiapine 25mg tablet OGT SCH ×2 (08:47→20:36)
[2021-08-03] MEDS: dexmedetomidine/D5W 100mL 100 ML IV SCH ×3 (08:49→17:25)
--- NOTE | 2021-08-03 10:30 | NUR ---
Informed tele doc Dr. Trevino of K 5.4. Received orders. ordered another ABG and for PICC to be placed.
--- NOTE | 2021-08-03 12:30 | NUR ---
Spoke with daughter Marlene over the phone and gave update on pts condition.
[2021-08-03 13:10] LABS: ABG BASE EXCESS -0.4 mmol/L (-2.0-2.0); ABG HCO3 23.6 mmol/L (22.0-26.0); ABG OXYGEN SATURATION 93.1 % (94-97); ABG PCO2 (T) 35.2 mmHg (35.0-48.0); ABG PO2 (T) 65.5 mmHg (75.0-100.0); ALLEN'S TEST POSITIVE; FCOHb 0.3 % (0.0-3.9); FMetHb 0.2 % (0.0-1.5); FO2Hb 92.6 % (94-97); PATIENT TEMPERATURE 36.3; PEEP 10 cm H2O; RESPIRATORY RATE 16 b/min; TIDAL VOLUME 500 mL; TOTAL HEMOGLOBIN 11.4 G/dl (14.0-18.0)
--- NOTE | 2021-08-03 16:30 | NUR ---
Pt desatting, BP dropped to 70/s systolic with levophed maxed out, HR went down to 32 for a brief period. Dr. Chacon at bedside, ordered to decrease peep to 12. Pt recovered with SaO2 90s, HR now 120s, BP systolic over 100, map above 60. Requested to call family and inform of declining condition. No other new orders at this time. Addendum: 08/03/21 at 1753 by Laila Medrano RN Disregard above note, wrong patient.
--- NOTE | 2021-08-03 17:52 | NUR ---
Delma Anaya called and updated on pts condition. Addendum: 08/03/21 at 1203 by Laila Medrano RN Disregard above note, wrong pt.
--- NOTE | 2021-08-03 18:29 | NUR ---
Problems reprioritized. Patient report given, questions answered & plan of care reviewed with Mac RN.
[2021-08-03] MEDS: enoxaparin 80mg/0.8ml syringe SUBCUT SCH (20:36)
[2021-08-04] VITALS (24 sets, daily range): BP systolic 115–152; BP diastolic 50–65
[2021-08-04] MEDS: methylPREDNISolone sod succ 125mg/2ml vial IV SCH (01:01)
[2021-08-04] MEDS: mineral oil/petrolatum ophthal oint EACHEYE SCH ×4 (02:10→19:59)
[2021-08-04] MEDS: dexmedetomidine/D5W 100mL 100 ML IV SCH ×3 (02:32→17:54)
[2021-08-04 03:12] LABS: ABG BASE EXCESS -0.8 mmol/L (-2.0-2.0); ABG HCO3 23.2 mmol/L (22.0-26.0); ABG OXYGEN SATURATION 92.3 % (94-97); ABG PCO2 (T) 34.7 mmHg (35.0-48.0); ABG PO2 (T) 64.9 mmHg (75.0-100.0); ALLEN'S TEST POSITIVE; FCOHb 0.2 % (0.0-3.9); FMetHb 0.2 % (0.0-1.5); FO2Hb 91.9 % (94-97); PATIENT TEMPERATURE 36.3; PEEP 10 cm H2O; RESPIRATORY RATE 16 b/min; TIDAL VOLUME 16 mL; TOTAL HEMOGLOBIN 11.1 G/dl (14.0-18.0)
[2021-08-04 03:24] LABS: BASOPHILS % (AUTO) 0.1 % (0-1); EOSINOPHILS % (AUTO) 0 % (0-6); HEMATOCRIT 29.9 % (42.0-52.0); HEMOGLOBIN 9.8 g/dl (14.0-17.9); LYMPHOCYTES # (AUTO) 0.4 X10'3 (1.1-4.8); LYMPHOCYTES % (AUTO) 2.9 % (21-51); MEAN CORPUSCULAR HEMOGLOBIN 29.6 PG (27.0-31.0); MEAN CORPUSCULAR HGB CONC 32.8 g/dL (33.0-36.5); MEAN CORPUSCULAR VOLUME 90.3 FL (78-98); MEAN PLATELET VOLUME 10.1 FL (7.4-10.4); MONOCYTES # (AUTO) 0.5 X10'3 (0-0.9); MONOCYTES % (AUTO) 3.4 % (2-12); NEUTROPHILS % (AUTO) 93.6 % (42-75); PLATELET COUNT 218 X10'3 (140-440); RED BLOOD COUNT 3.31 X10'6 (4.70-6.10); RED CELL DISTRIBUTION WIDTH 14.7 % (11.5-14.5)
[2021-08-04 03:34] LABS: ALANINE AMINOTRANSFERASE 345 U/L (12-78); ALBUMIN 1.4 G/DL (3.4-5.0); ALBUMIN/GLOBULIN RATIO 0.3 (1.1-1.5); ALKALINE PHOSPHATASE 146 IU/L (46-116); ANION GAP 8 (8-16); ASPARTATE AMINO TRANSFERASE 119 U/L (10-37); BILIRUBIN,TOTAL 0.7 MG/DL (0.1-1.0); BLOOD UREA NITROGEN 89 MG/DL (7-18); BUN/CREATININE RATIO 46.4 (5.4-32.0); C-REACTIVE PROTEIN 2.34 MG/DL (0.0-0.5); CALCIUM 8.6 MG/DL (8.5-10.1); CHLORIDE 117 MMOL/L (99-107); CREATININE 1.92 MG/DL (0.60-1.10); GLUCOSE 158 MG/DL (70-104); MAGNESIUM 1.9 MG/DL (1.5-2.4); PHOSPHORUS 4.7 MG/DL (2.3-4.5); POTASSIUM 5.1 MMOL/L (3.5-5.1); SODIUM 151 MMOL/L (135-145); TOTAL CARBON DIOXIDE 26.3 MMOL/L (24-32); eGFR 34 ML/MIN
[2021-08-04 03:36] LABS: D-DIMER 5.83 MG/L FEU (0-0.50)
[2021-08-04] MEDS: FENTANYL-0.9 % NACL/PF 100 ML IV PRN ×4 (04:16→23:28)
--- NOTE | 2021-08-04 08:14 | NUR ---
F/u 08/03: Pt remains intubated w/ TF at goal and GRV's steadily increasing 250-400ml past 2 days. Receiving routine colace w/ rectal tube -700ml output 08/02, 400ml 08/01, and 500ml 07/31. Given GRV's and rectal tube output hx pt may benefit from holding stool softener w/ addition of opioid antagonist vs post-pyloric feeds if MD agreeable. Serum Na 151 down from 153 yesterday receiving 200ml Q4H free water and GAEL improving per MD note. Will continue to monitor for TF tolerance and adjustment needs on vent. Recommendations: 1) Continuous TF using Vital AF via OGT with goal rate of 80 mL/hr to provide 1920ml volume, 2304kcals, 144g protein, 1555ml H2O. To begin at 20 mL/hr and advance by 20 mL Q8H as tolerated to goal rate 2) Additional water flushes 200ml Q4H; monitor for adjustment needs 3) Prealbumin q Friday/, daily scaled weights 4) bowel care per rx; consider holding colace and initiating opioid antagonist vs post-pyloric feeds if MD agreeable given rectal tube output 400-700ml past 3 days w/ GRV's 250-400ml Addendum: 08/04/21 at [address] Amended: Links added.
[2021-08-04] MEDS: midazolam 100mg in NS 100ml 100 ML IV PRN ×3 (08:33→23:28)
[2021-08-04] MEDS: lansoprazole 15mg solutab OGT SCH (08:56)
[2021-08-04] MEDS: lactobacillus rhamnosus 10,000 MMU CELLS/CAPSULE PO SCH ×2 (08:56→19:59)
[2021-08-04] MEDS: docusate sodium 100mg/10ml UD cup OGT SCH ×2 (08:56→19:59)
[2021-08-04] MEDS: aspirin 81mg tab.chew OGT SCH (08:56)
[2021-08-04] MEDS: MULTIVIT-MIN/FERROUS GLUCONATE 9 MG/15 ML LIQUID OGT SCH (08:56)
[2021-08-04] MEDS: folic acid 1mg tablet PO SCH (08:56)
[2021-08-04] MEDS: thiamine 100mg tablet OGT SCH (09:03)
[2021-08-04] MEDS: QUEtiapine 25mg tablet OGT SCH ×2 (09:03→19:59)
[2021-08-04] MEDS: methylPREDNISolone sod succ/PF 40mg inj. IV SCH ×2 (16:56→23:27)
--- NOTE | 2021-08-04 18:30 | NUR ---
Patient in room CICU 2007. I have received report from Osmar RANKIN and had the opportunity to ask questions and assume patient care.
[2021-08-04] MEDS: enoxaparin 80mg/0.8ml syringe SUBCUT SCH (19:59)
[2021-08-05] VITALS (24 sets, daily range): BP systolic 108–145; BP diastolic 49–63
[2021-08-05] MEDS: mineral oil/petrolatum ophthal oint EACHEYE SCH ×4 (02:22→20:00)
[2021-08-05 02:29] LABS: ABG BASE EXCESS -3.6 mmol/L (-2.0-2.0); ABG HCO3 20.6 mmol/L (22.0-26.0); ABG OXYGEN SATURATION 92.4 % (94-97); ABG PCO2 (T) 34.1 mmHg (35.0-48.0); ABG PO2 (T) 68.7 mmHg (75.0-100.0); ALLEN'S TEST POSITIVE; FCOHb 0.3 % (0.0-3.9); FMetHb 0.2 % (0.0-1.5); FO2Hb 91.9 % (94-97); PEEP 10 cm H2O; RESPIRATORY RATE 16 b/min; TIDAL VOLUME 500 mL; TOTAL HEMOGLOBIN 10.8 G/dl (14.0-18.0)
[2021-08-05 02:35] LABS: BASOPHILS % (AUTO) 0 % (0-1); EOSINOPHILS % (AUTO) 0 % (0-6); HEMATOCRIT 29.6 % (42.0-52.0); HEMOGLOBIN 9.8 g/dl (14.0-17.9); LYMPHOCYTES # (AUTO) 0.4 X10'3 (1.1-4.8); LYMPHOCYTES % (AUTO) 1.9 % (21-51); MEAN CORPUSCULAR HEMOGLOBIN 30.1 PG (27.0-31.0); MEAN CORPUSCULAR VOLUME 91.2 FL (78-98); MEAN PLATELET VOLUME 10.4 FL (7.4-10.4); MONOCYTES # (AUTO) 0.3 X10'3 (0-0.9); MONOCYTES % (AUTO) 1.8 % (2-12); NEUTROPHILS # (AUTO) 17.5 X10'3 (1.8-7.7); NEUTROPHILS % (AUTO) 96.3 % (42-75); PLATELET COUNT 219 X10'3 (140-440); RED BLOOD COUNT 3.25 X10'6 (4.70-6.10); RED CELL DISTRIBUTION WIDTH 14.7 % (11.5-14.5); WHITE BLOOD COUNT 18.2 X10'3 (4.5-11.0)
[2021-08-05 02:43] LABS: ALANINE AMINOTRANSFERASE 332 U/L (12-78); ALBUMIN 1.5 G/DL (3.4-5.0); ALBUMIN/GLOBULIN RATIO 0.3 (1.1-1.5); ALKALINE PHOSPHATASE 141 IU/L (46-116); ANION GAP 8 (8-16); ASPARTATE AMINO TRANSFERASE 104 U/L (10-37); BILIRUBIN,TOTAL 0.7 MG/DL (0.1-1.0); BLOOD UREA NITROGEN 87 MG/DL (7-18); BUN/CREATININE RATIO 50.9 (5.4-32.0); C-REACTIVE PROTEIN 1.37 MG/DL (0.0-0.5); CALCIUM 8.2 MG/DL (8.5-10.1); CHLORIDE 115 MMOL/L (99-107); CREATININE 1.71 MG/DL (0.60-1.10); GLUCOSE 162 MG/DL (70-104); MAGNESIUM 1.8 MG/DL (1.5-2.4); PHOSPHORUS 4.7 MG/DL (2.3-4.5); POTASSIUM 5.4 MMOL/L (3.5-5.1); SODIUM 148 MMOL/L (135-145); TOTAL CARBON DIOXIDE 25.4 MMOL/L (24-32); TOTAL PROTEIN 5.9 G/DL (6.4-8.2); eGFR 39 ML/MIN
[2021-08-05] MEDS: FENTANYL-0.9 % NACL/PF 100 ML IV PRN ×4 (04:46→21:37)
--- NOTE | 2021-08-05 06:33 | NUR ---
Problems reprioritized. Patient report given, questions answered & plan of care reviewed with Laila RANKIN.
--- NOTE | 2021-08-05 06:33 | NUR ---
Patient in room CICU 2007. I have received report from Ashlyn RANKIN and had the opportunity to ask questions and assume patient care.
[2021-08-05] MEDS: docusate sodium 100mg/10ml UD cup OGT SCH ×2 (07:48→20:00)
[2021-08-05] MEDS: folic acid 1mg tablet PO SCH (07:56)
[2021-08-05] MEDS: lactobacillus rhamnosus 10,000 MMU CELLS/CAPSULE PO SCH ×2 (07:56→20:52)
[2021-08-05] MEDS: QUEtiapine 25mg tablet OGT SCH ×2 (07:56→20:52)
[2021-08-05] MEDS: methylPREDNISolone sod succ/PF 40mg inj. IV SCH ×2 (07:56→15:05)
[2021-08-05] MEDS: aspirin 81mg tab.chew OGT SCH (07:56)
[2021-08-05] MEDS: thiamine 100mg tablet OGT SCH (07:56)
[2021-08-05] MEDS: lansoprazole 15mg solutab OGT SCH (07:56)
[2021-08-05] MEDS: midazolam 100mg in NS 100ml 100 ML IV PRN ×3 (07:57→23:21)
--- NOTE | 2021-08-05 08:31 | NUR ---
Informed Dr. Fisher of K 5.4. No new orders at this time.
[2021-08-05] MEDS: dexmedetomidine/D5W 100mL 100 ML IV SCH ×2 (08:38→10:10)
[2021-08-05] MEDS: MULTIVIT-MIN/FERROUS GLUCONATE 9 MG/15 ML LIQUID OGT SCH (08:44)
[2021-08-05] MEDS ORDERED: glucagon, human recombinant 1mg kit SUBCUT PRN (14:20)
[2021-08-05] MEDS ORDERED: dextrose 50%-water 50ml dispensing syringe IV PRN ×2 (14:20)
[2021-08-05] MEDS: insulin regular, human U-100 3ml vial - multi-dose SQ SCH ×2 (14:25→21:03)
[2021-08-05] MEDS: SODIUM ZIRCONIUM CYCLOSILICATE 10 GM POWD.PACK PO SCH (16:44)
--- NOTE | 2021-08-05 18:24 | NUR ---
Problems reprioritized. Patient report given, questions answered & plan of care reviewed with Bryan RANKIN.
--- NOTE | 2021-08-05 18:25 | NUR ---
Patient in room CICU 2008. I have received report from Laila RANKIN and had the opportunity to ask questions and assume patient care.
[2021-08-05] MEDS: enoxaparin 80mg/0.8ml syringe SUBCUT SCH (20:53)
[2021-08-05] MEDS: insulin glargine (Lantus) pen - multi-dose SQ SCH (21:04)
[2021-08-06] VITALS (23 sets, daily range): BP systolic 111–141; BP diastolic 50–63
[2021-08-06] MEDS: methylPREDNISolone sod succ/PF 40mg inj. IV SCH ×3 (00:30→15:51)
[2021-08-06] MEDS: dexmedetomidine/D5W 100mL 100 ML IV SCH ×3 (00:54→17:10)
[2021-08-06] MEDS: insulin regular, human U-100 3ml vial - multi-dose SQ SCH ×4 (02:11→22:08)
[2021-08-06] MEDS: mineral oil/petrolatum ophthal oint EACHEYE SCH ×4 (02:32→22:05)
[2021-08-06 02:41] LABS: ABG BASE EXCESS -2.5 mmol/L (-2.0-2.0); ABG HCO3 22.1 mmol/L (22.0-26.0); ABG OXYGEN SATURATION 89.6 % (94-97); ABG PCO2 (T) 36.3 mmHg (35.0-48.0); ABG PO2 (T) 57.2 mmHg (75.0-100.0); ALLEN'S TEST POSITIVE; FCOHb 0.3 % (0.0-3.9); FMetHb 0.2 % (0.0-1.5); FO2Hb 89.2 % (94-97); PATIENT TEMPERATURE 36.3; PEEP 10 cm H2O; TOTAL HEMOGLOBIN 10.3 G/dl (14.0-18.0)
[2021-08-06] MEDS: FENTANYL-0.9 % NACL/PF 100 ML IV PRN ×4 (02:54→21:32)
[2021-08-06 03:26] LABS: BASOPHILS % (AUTO) 0.2 % (0-1); EOSINOPHILS % (AUTO) 0 % (0-6); HEMATOCRIT 28.1 % (42.0-52.0); HEMOGLOBIN 9.2 g/dl (14.0-17.9); LYMPHOCYTES # (AUTO) 0.3 X10'3 (1.1-4.8); LYMPHOCYTES % (AUTO) 1.8 % (21-51); MEAN CORPUSCULAR HEMOGLOBIN 29.8 PG (27.0-31.0); MEAN CORPUSCULAR HGB CONC 32.6 g/dL (33.0-36.5); MEAN CORPUSCULAR VOLUME 91.4 FL (78-98); MEAN PLATELET VOLUME 10.4 FL (7.4-10.4); MONOCYTES # (AUTO) 0.7 X10'3 (0-0.9); MONOCYTES % (AUTO) 3.9 % (2-12); NEUTROPHILS # (AUTO) 17.4 X10'3 (1.8-7.7); NEUTROPHILS % (AUTO) 94.1 % (42-75); PLATELET COUNT 208 X10'3 (140-440); RED BLOOD COUNT 3.07 X10'6 (4.70-6.10); RED CELL DISTRIBUTION WIDTH 14.5 % (11.5-14.5); WHITE BLOOD COUNT 18.5 X10'3 (4.5-11.0)
[2021-08-06 03:36] LABS: D-DIMER 3.06 MG/L FEU (0-0.50)
[2021-08-06 03:57] LABS: ALANINE AMINOTRANSFERASE 217 U/L (12-78); ALBUMIN 1.4 G/DL (3.4-5.0); ALBUMIN/GLOBULIN RATIO 0.3 (1.1-1.5); ALKALINE PHOSPHATASE 115 IU/L (46-116); ANION GAP 8 (8-16); ASPARTATE AMINO TRANSFERASE 44 U/L (10-37); BILIRUBIN,TOTAL 0.6 MG/DL (0.1-1.0); BLOOD UREA NITROGEN 81 MG/DL (7-18); BUN/CREATININE RATIO 53.3 (5.4-32.0); C-REACTIVE PROTEIN 1.57 MG/DL (0.0-0.5); CALCIUM 7.9 MG/DL (8.5-10.1); CHLORIDE 113 MMOL/L (99-107); CREATININE 1.52 MG/DL (0.60-1.10); GLUCOSE 149 MG/DL (70-104); MAGNESIUM 1.8 MG/DL (1.5-2.4); PREALBUMIN 31.7 MG/DL (19-36); SODIUM 146 MMOL/L (135-145); TOTAL CARBON DIOXIDE 24.8 MMOL/L (24-32); TOTAL PROTEIN 5.5 G/DL (6.4-8.2); eGFR 45 ML/MIN
[2021-08-06 06:15] LABS: ABG HCO3 22.2 mmol/L (22.0-26.0); ABG OXYGEN SATURATION 90.4 % (94-97); ABG PCO2 (T) 32.2 mmHg (35.0-48.0); ABG PO2 (T) 61.6 mmHg (75.0-100.0); ALLEN'S TEST POSITIVE; FCOHb 0.3 % (0.0-3.9); FMetHb 0.2 % (0.0-1.5); FO2Hb 89.9 % (94-97); PATIENT TEMPERATURE 37.1; PEEP 10 cm H2O; RESPIRATORY RATE 16 b/min; TIDAL VOLUME 500 mL; TOTAL HEMOGLOBIN 11.6 G/dl (14.0-18.0)
--- NOTE | 2021-08-06 06:18 | NUR ---
Problems reprioritized. Patient report given, questions answered & plan of care reviewed with Laila RANKIN.
--- NOTE | 2021-08-06 06:31 | NUR ---
Patient in room CICU 2007. I have received report from Bryan RANKIN and had the opportunity to ask questions and assume patient care.
[2021-08-06] MEDS: midazolam 100mg in NS 100ml 100 ML IV PRN ×3 (06:38→20:57)
[2021-08-06] MEDS: SODIUM ZIRCONIUM CYCLOSILICATE 10 GM POWD.PACK PO SCH (07:14)
[2021-08-06] MEDS: QUEtiapine 25mg tablet OGT SCH ×2 (07:22→22:01)
[2021-08-06] MEDS: MULTIVIT-MIN/FERROUS GLUCONATE 9 MG/15 ML LIQUID OGT SCH (07:22)
[2021-08-06] MEDS: lansoprazole 15mg solutab OGT SCH (07:22)
[2021-08-06] MEDS: folic acid 1mg tablet PO SCH (07:22)
[2021-08-06] MEDS: docusate sodium 100mg/10ml UD cup OGT SCH ×2 (07:23→20:00)
[2021-08-06] MEDS: thiamine 100mg tablet OGT SCH (07:23)
[2021-08-06] MEDS: lactobacillus rhamnosus 10,000 MMU CELLS/CAPSULE PO SCH ×2 (07:23→22:01)
[2021-08-06] MEDS: aspirin 81mg tab.chew OGT SCH (07:32)
--- NOTE | 2021-08-06 18:27 | NUR ---
Problems reprioritized. Patient report given, questions answered & plan of care reviewed with Bryan RANKIN.
[2021-08-06] MEDS: enoxaparin 80mg/0.8ml syringe SUBCUT SCH (22:02)
[2021-08-06] MEDS: insulin glargine (Lantus) pen - multi-dose SQ SCH (22:10)
[2021-08-07] VITALS (24 sets, daily range): BP systolic 103–150; BP diastolic 48–74
[2021-08-07] MEDS: dexmedetomidine/D5W 100mL 100 ML IV SCH ×4 (00:27→18:56)
[2021-08-07] MEDS: methylPREDNISolone sod succ/PF 40mg inj. IV SCH ×3 (00:27→15:37)
[2021-08-07] MEDS: mineral oil/petrolatum ophthal oint EACHEYE SCH ×4 (02:12→20:56)
[2021-08-07] MEDS: insulin regular, human U-100 3ml vial - multi-dose SQ SCH ×4 (02:12→20:33)
[2021-08-07 03:12] LABS: BASOPHILS % (AUTO) 0.1 % (0-1); EOSINOPHILS % (AUTO) 0.1 % (0-6); HEMATOCRIT 32.9 % (42.0-52.0); HEMOGLOBIN 10.8 g/dl (14.0-17.9); LYMPHOCYTES # (AUTO) 0.9 X10'3 (1.1-4.8); LYMPHOCYTES % (AUTO) 4.1 % (21-51); MEAN CORPUSCULAR HGB CONC 32.7 g/dL (33.0-36.5); MEAN CORPUSCULAR VOLUME 91.6 FL (78-98); MEAN PLATELET VOLUME 10.6 FL (7.4-10.4); MONOCYTES % (AUTO) 4.3 % (2-12); NEUTROPHILS # (AUTO) 20.1 X10'3 (1.8-7.7); NEUTROPHILS % (AUTO) 91.4 % (42-75); PLATELET COUNT 266 X10'3 (140-440); RED BLOOD COUNT 3.59 X10'6 (4.70-6.10); RED CELL DISTRIBUTION WIDTH 14.5 % (11.5-14.5)
[2021-08-07 03:22] LABS: D-DIMER 4.12 MG/L FEU (0-0.50)
[2021-08-07 03:23] LABS: ABG BASE EXCESS -5.3 mmol/L (-2.0-2.0); ABG HCO3 18.4 mmol/L (22.0-26.0); ABG OXYGEN SATURATION 93.9 % (94-97); ABG PCO2 (T) 28.9 mmHg (35.0-48.0); ABG PO2 (T) 71.1 mmHg (75.0-100.0); ALLEN'S TEST Modified; FCOHb 0.3 % (0.0-3.9); FMetHb 0.1 % (0.0-1.5); FO2Hb 93.5 % (94-97); PATIENT TEMPERATURE 36.3; PEEP 10 cm H2O; RESPIRATORY RATE 16 b/min; TIDAL VOLUME 500 mL; TOTAL HEMOGLOBIN 9.9 G/dl (14.0-18.0)
[2021-08-07] MEDS: midazolam 100mg in NS 100ml 100 ML IV PRN ×3 (03:26→16:16)
[2021-08-07 03:28] LABS: ALANINE AMINOTRANSFERASE 181 U/L (12-78); ALBUMIN 1.6 G/DL (3.4-5.0); ALBUMIN/GLOBULIN RATIO 0.3 (1.1-1.5); ALKALINE PHOSPHATASE 125 IU/L (46-116); ANION GAP 9 (8-16); ASPARTATE AMINO TRANSFERASE 42 U/L (10-37); BILIRUBIN,TOTAL 0.6 MG/DL (0.1-1.0); BLOOD UREA NITROGEN 76 MG/DL (7-18); BUN/CREATININE RATIO 53.5 (5.4-32.0); CHLORIDE 109 MMOL/L (99-107); CREATININE 1.42 MG/DL (0.60-1.10); GLUCOSE 144 MG/DL (70-104); MAGNESIUM 1.8 MG/DL (1.5-2.4); PHOSPHORUS 3.8 MG/DL (2.3-4.5); POTASSIUM 4.8 MMOL/L (3.5-5.1); SODIUM 141 MMOL/L (135-145); TOTAL CARBON DIOXIDE 23.2 MMOL/L (24-32); TOTAL PROTEIN 6.3 G/DL (6.4-8.2); eGFR 49 ML/MIN
[2021-08-07 05:56] LABS: LARGE PLATELETS FEW; PLATELET ESTIMATE NORMAL
--- NOTE | 2021-08-07 06:00 | NUR ---
Patient in room CICU 2007. I have received report from Bryan RANKIN and had the opportunity to ask questions and assume patient care.
[2021-08-07] MEDS: FENTANYL-0.9 % NACL/PF 100 ML IV PRN ×2 (06:03→15:37)
--- NOTE | 2021-08-07 06:29 | NUR ---
Problems reprioritized. Patient report given, questions answered & plan of care reviewed with Laila RANKIN.
[2021-08-07] MEDS: SODIUM ZIRCONIUM CYCLOSILICATE 10 GM POWD.PACK PO SCH (07:21)
[2021-08-07] MEDS: docusate sodium 100mg/10ml UD cup OGT SCH ×2 (08:00→20:00)
[2021-08-07] MEDS: folic acid 1mg tablet PO SCH (08:45)
[2021-08-07] MEDS: QUEtiapine 25mg tablet OGT SCH ×2 (08:45→20:19)
[2021-08-07] MEDS: lactobacillus rhamnosus 10,000 MMU CELLS/CAPSULE PO SCH ×2 (08:45→20:18)
[2021-08-07] MEDS: aspirin 81mg tab.chew OGT SCH (08:45)
[2021-08-07] MEDS: lansoprazole 15mg solutab OGT SCH (08:45)
[2021-08-07] MEDS: MULTIVIT-MIN/FERROUS GLUCONATE 9 MG/15 ML LIQUID OGT SCH (08:45)
[2021-08-07] MEDS: thiamine 100mg tablet OGT SCH (08:45)
--- NOTE | 2021-08-07 12:32 | NUR ---
F/u 08/07: Pt tolerating TF at goal GRV WNL. Rectal tube -100ml past 24 hours receiving routine colace per EMR. Will continue to monitor for nutrition support tolerance and adjustment needs on vent. Recommendations: 1) Continuous TF using Vital AF via OGT with goal rate of 80 mL/hr to provide 1920ml volume, 2304kcals, 144g protein, 1555ml H2O. To begin at 20 mL/hr and advance by 20 mL Q8H as tolerated to goal rate 2) Additional water flushes 200ml Q4H; monitor for adjustment needs 3) Prealbumin q Friday/, daily scaled weights 4) bowel care per rx; rectal tube output currently WNL from 700ml 08/02 Addendum: 08/07/21 at [address] Amended: Links added.
--- NOTE | 2021-08-07 18:20 | NUR ---
Patient in room CICU 2008. I have received report from Laila RANKIN and had the opportunity to ask questions and assume patient care.
--- NOTE | 2021-08-07 18:21 | NUR ---
Problems reprioritized. Patient report given, questions answered & plan of care reviewed with rByan RANKIN.
[2021-08-07] MEDS: enoxaparin 80mg/0.8ml syringe SUBCUT SCH (20:18)
[2021-08-07] MEDS: insulin glargine (Lantus) pen - multi-dose SQ SCH (20:34)
[2021-08-08] VITALS (22 sets, daily range): BP systolic 97–181; BP diastolic 51–93
[2021-08-08] MEDS: methylPREDNISolone sod succ/PF 40mg inj. IV SCH ×3 (00:13→16:00)
[2021-08-08] MEDS: insulin regular, human U-100 3ml vial - multi-dose SQ SCH ×4 (02:19→19:51)
[2021-08-08] MEDS: mineral oil/petrolatum ophthal oint EACHEYE SCH ×4 (02:20→19:56)
[2021-08-08] MEDS: dexmedetomidine/D5W 100mL 100 ML IV SCH ×6 (02:44→22:33)
[2021-08-08 02:45] LABS: BASOPHILS % (AUTO) 0.1 % (0-1); EOSINOPHILS % (AUTO) 0.1 % (0-6); HEMATOCRIT 31.5 % (42.0-52.0); HEMOGLOBIN 10.2 g/dl (14.0-17.9); LYMPHOCYTES # (AUTO) 0.4 X10'3 (1.1-4.8); LYMPHOCYTES % (AUTO) 2.3 % (21-51); MEAN CORPUSCULAR HEMOGLOBIN 29.6 PG (27.0-31.0); MEAN CORPUSCULAR HGB CONC 32.4 g/dL (33.0-36.5); MEAN CORPUSCULAR VOLUME 91.5 FL (78-98); MEAN PLATELET VOLUME 10.3 FL (7.4-10.4); MONOCYTES # (AUTO) 0.4 X10'3 (0-0.9); MONOCYTES % (AUTO) 2.3 % (2-12); NEUTROPHILS # (AUTO) 18.3 X10'3 (1.8-7.7); NEUTROPHILS % (AUTO) 95.2 % (42-75); PLATELET COUNT 259 X10'3 (140-440); RED BLOOD COUNT 3.44 X10'6 (4.70-6.10); RED CELL DISTRIBUTION WIDTH 14.4 % (11.5-14.5); WHITE BLOOD COUNT 19.2 X10'3 (4.5-11.0)
[2021-08-08] MEDS: FENTANYL-0.9 % NACL/PF 100 ML IV PRN ×5 (02:45→22:31)
[2021-08-08 02:58] LABS: ALANINE AMINOTRANSFERASE 182 U/L (12-78); ALBUMIN 1.4 G/DL (3.4-5.0); ALBUMIN/GLOBULIN RATIO 0.3 (1.1-1.5); ALKALINE PHOSPHATASE 113 IU/L (46-116); ANION GAP 12 (8-16); ASPARTATE AMINO TRANSFERASE 59 U/L (10-37); BILIRUBIN,TOTAL 0.5 MG/DL (0.1-1.0); BLOOD UREA NITROGEN 68 MG/DL (7-18); BUN/CREATININE RATIO 57.6 (5.4-32.0); C-REACTIVE PROTEIN 1.93 MG/DL (0.0-0.5); CALCIUM 7.7 MG/DL (8.5-10.1); CHLORIDE 110 MMOL/L (99-107); CREATININE 1.18 MG/DL (0.60-1.10); GLUCOSE 157 MG/DL (70-104); MAGNESIUM 1.7 MG/DL (1.5-2.4); PHOSPHORUS 3.3 MG/DL (2.3-4.5); POTASSIUM 4.7 MMOL/L (3.5-5.1); SODIUM 143 MMOL/L (135-145); TOTAL CARBON DIOXIDE 20.6 MMOL/L (24-32); TOTAL PROTEIN 5.8 G/DL (6.4-8.2); eGFR 60 ML/MIN
[2021-08-08 03:04] LABS: D-DIMER 3.92 MG/L FEU (0-0.50)
[2021-08-08 03:43] LABS: ABG BASE EXCESS -4.5 mmol/L (-2.0-2.0); ABG HCO3 18.6 mmol/L (22.0-26.0); ABG OXYGEN SATURATION 89.8 % (94-97); ABG PCO2 (T) 27.5 mmHg (35.0-48.0); ABG PO2 (T) 55.2 mmHg (75.0-100.0); ALLEN'S TEST Modified; FCOHb 0.3 % (0.0-3.9); FMetHb 0.1 % (0.0-1.5); FO2Hb 89.4 % (94-97); PATIENT TEMPERATURE 36.4; PEEP 5 cm H2O; TOTAL HEMOGLOBIN 10.6 G/dl (14.0-18.0)
--- NOTE | 2021-08-08 03:57 | NUR ---
Notified MD Lee that patient's morning ABG O2 dropped from 71.1 to 55.2. Informed him that patient's PEEP dropped from 10 to 5 during dayshift and current oxygen saturation is at 94%. No orders received from , states to have daytime MD address decrease in O2 and vent settings.
--- NOTE | 2021-08-08 06:42 | NUR ---
Problems reprioritized. Patient report given, questions answered & plan of care reviewed with DIWOT RN
[2021-08-08] MEDS: MULTIVIT-MIN/FERROUS GLUCONATE 9 MG/15 ML LIQUID OGT SCH (07:29)
[2021-08-08] MEDS: docusate sodium 100mg/10ml UD cup OGT SCH ×2 (07:29→19:56)
[2021-08-08] MEDS: lactobacillus rhamnosus 10,000 MMU CELLS/CAPSULE PO SCH ×2 (07:29→19:56)
[2021-08-08] MEDS: lansoprazole 15mg solutab OGT SCH (07:29)
[2021-08-08] MEDS: QUEtiapine 25mg tablet OGT SCH ×2 (07:29→19:56)
[2021-08-08] MEDS: aspirin 81mg tab.chew OGT SCH (07:30)
[2021-08-08] MEDS: thiamine 100mg tablet OGT SCH (07:30)
[2021-08-08] MEDS: folic acid 1mg tablet PO SCH (07:39)
[2021-08-08] MEDS: SODIUM ZIRCONIUM CYCLOSILICATE 10 GM POWD.PACK PO SCH (07:39)
[2021-08-08] MEDS: midazolam 100mg in NS 100ml 100 ML IV PRN ×2 (18:26→23:58)
[2021-08-08] MEDS: insulin glargine (Lantus) pen - multi-dose SQ SCH (19:53)
[2021-08-08] MEDS: enoxaparin 80mg/0.8ml syringe SUBCUT SCH (19:56)
[2021-08-09] VITALS (24 sets, daily range): BP systolic 81–157; BP diastolic 38–72
[2021-08-09] MEDS: FENTANYL-0.9 % NACL/PF 100 ML IV PRN ×4 (01:55→22:25)
[2021-08-09] MEDS: mineral oil/petrolatum ophthal oint EACHEYE SCH ×4 (01:55→20:32)
[2021-08-09] MEDS: midazolam 100mg in NS 100ml 100 ML IV PRN ×3 (01:56→17:44)
[2021-08-09] MEDS: dexmedetomidine/D5W 100mL 100 ML IV SCH ×5 (03:16→22:04)
[2021-08-09 03:25] LABS: BASOPHILS % (AUTO) 0.2 % (0-1); EOSINOPHILS % (AUTO) 0.1 % (0-6); HEMATOCRIT 29.7 % (42.0-52.0); HEMOGLOBIN 9.9 g/dl (14.0-17.9); LYMPHOCYTES # (AUTO) 0.7 X10'3 (1.1-4.8); LYMPHOCYTES % (AUTO) 3.7 % (21-51); MEAN CORPUSCULAR HEMOGLOBIN 29.8 PG (27.0-31.0); MEAN CORPUSCULAR HGB CONC 33.4 g/dL (33.0-36.5); MEAN CORPUSCULAR VOLUME 89.2 FL (78-98); MEAN PLATELET VOLUME 9.5 FL (7.4-10.4); NEUTROPHILS # (AUTO) 17.1 X10'3 (1.8-7.7); PLATELET COUNT 289 X10'3 (140-440); RED BLOOD COUNT 3.33 X10'6 (4.70-6.10); RED CELL DISTRIBUTION WIDTH 14.7 % (11.5-14.5); WHITE BLOOD COUNT 18.8 X10'3 (4.5-11.0)
[2021-08-09 03:48] LABS: D-DIMER 6.54 MG/L FEU (0-0.50)
[2021-08-09 04:17] LABS: ALANINE AMINOTRANSFERASE 174 U/L (12-78); ALBUMIN 1.5 G/DL (3.4-5.0); ALBUMIN/GLOBULIN RATIO 0.4 (1.1-1.5); ALKALINE PHOSPHATASE 118 IU/L (46-116); ANION GAP 12 (8-16); ASPARTATE AMINO TRANSFERASE 74 U/L (10-37); BILIRUBIN,TOTAL 0.5 MG/DL (0.1-1.0); BLOOD UREA NITROGEN 92 MG/DL (7-18); BUN/CREATININE RATIO 59.4 (5.4-32.0); C-REACTIVE PROTEIN 1.21 MG/DL (0.0-0.5); CALCIUM 7.8 MG/DL (8.5-10.1); CHLORIDE 109 MMOL/L (99-107); CREATININE 1.55 MG/DL (0.60-1.10); GLUCOSE 103 MG/DL (70-104); MAGNESIUM 1.9 MG/DL (1.5-2.4); PHOSPHORUS 3.7 MG/DL (2.3-4.5); POTASSIUM 5.3 MMOL/L (3.5-5.1); PREALBUMIN 34.9 MG/DL (19-36); SODIUM 143 MMOL/L (135-145); TOTAL CARBON DIOXIDE 22.1 MMOL/L (24-32); TOTAL PROTEIN 5.7 G/DL (6.4-8.2); eGFR 44 ML/MIN
[2021-08-09 04:34] LABS: ABG BASE EXCESS -5.8 mmol/L (-2.0-2.0); ABG HCO3 18.7 mmol/L (22.0-26.0); ABG PCO2 (T) 33.1 mmHg (35.0-48.0); ALLEN'S TEST Modified; FCOHb 0.2 % (0.0-3.9); FMetHb 0.3 % (0.0-1.5); FO2Hb 90.5 % (94-97); PEEP 10 cm H2O; RESPIRATORY RATE 16 b/min; TIDAL VOLUME 500 mL; TOTAL HEMOGLOBIN 11.1 G/dl (14.0-18.0)
[2021-08-09 04:45] LABS: TOTAL CELLS COUNTED 100
[2021-08-09 04:46] LABS: PLATELET ESTIMATE NORMAL
[2021-08-09] MEDS: methylPREDNISolone sod succ/PF 40mg inj. IV SCH ×3 (07:14→20:32)
[2021-08-09] MEDS: docusate sodium 100mg/10ml UD cup OGT SCH ×2 (07:15→20:27)
[2021-08-09] MEDS: lansoprazole 15mg solutab OGT SCH (07:15)
[2021-08-09] MEDS: QUEtiapine 25mg tablet OGT SCH ×2 (07:15→20:27)
[2021-08-09] MEDS: MULTIVIT-MIN/FERROUS GLUCONATE 9 MG/15 ML LIQUID OGT SCH (07:15)
[2021-08-09] MEDS: thiamine 100mg tablet OGT SCH (07:15)
[2021-08-09] MEDS: lactobacillus rhamnosus 10,000 MMU CELLS/CAPSULE PO SCH ×2 (07:15→20:26)
[2021-08-09] MEDS: folic acid 1mg tablet PO SCH (07:15)
[2021-08-09] MEDS: aspirin 81mg tab.chew OGT SCH (07:15)
[2021-08-09] MEDS: SODIUM ZIRCONIUM CYCLOSILICATE 10 GM POWD.PACK PO SCH (07:15)
[2021-08-09] MEDS: enoxaparin 80mg/0.8ml syringe SUBCUT SCH ×2 (13:39→20:33)
[2021-08-09] MEDS: insulin regular, human U-100 3ml vial - multi-dose SQ SCH ×2 (15:46→20:00)
[2021-08-09] MEDS: insulin glargine (Lantus) pen - multi-dose SQ SCH (20:01)
[2021-08-10] VITALS (24 sets, daily range): BP systolic 77–149; BP diastolic 24–62
[2021-08-10] MEDS: mineral oil/petrolatum ophthal oint EACHEYE SCH ×4 (02:24→20:00)
[2021-08-10] MEDS: insulin regular, human U-100 3ml vial - multi-dose SQ SCH ×3 (02:51→20:21)
[2021-08-10 03:05] LABS: BASOPHILS % (AUTO) 0.1 % (0-1); EOSINOPHILS % (AUTO) 0.1 % (0-6); HEMATOCRIT 26.8 % (42.0-52.0); HEMOGLOBIN 8.7 g/dl (14.0-17.9); LYMPHOCYTES # (AUTO) 0.3 X10'3 (1.1-4.8); LYMPHOCYTES % (AUTO) 1.6 % (21-51); MEAN CORPUSCULAR HEMOGLOBIN 29.7 PG (27.0-31.0); MEAN CORPUSCULAR HGB CONC 32.4 g/dL (33.0-36.5); MEAN CORPUSCULAR VOLUME 91.8 FL (78-98); MEAN PLATELET VOLUME 9.3 FL (7.4-10.4); MONOCYTES # (AUTO) 0.4 X10'3 (0-0.9); MONOCYTES % (AUTO) 2.3 % (2-12); NEUTROPHILS # (AUTO) 18.9 X10'3 (1.8-7.7); NEUTROPHILS % (AUTO) 95.9 % (42-75); PLATELET COUNT 215 X10'3 (140-440); RED BLOOD COUNT 2.92 X10'6 (4.70-6.10); WHITE BLOOD COUNT 19.7 X10'3 (4.5-11.0)
[2021-08-10 03:20] LABS: D-DIMER 4.19 MG/L FEU (0-0.50)
[2021-08-10] MEDS: midazolam 100mg in NS 100ml 100 ML IV PRN ×2 (03:28→14:18)
[2021-08-10] MEDS: dexmedetomidine/D5W 100mL 100 ML IV SCH ×5 (03:29→17:14)
[2021-08-10 03:32] LABS: ALANINE AMINOTRANSFERASE 115 U/L (12-78); ALBUMIN 1.2 G/DL (3.4-5.0); ALBUMIN/GLOBULIN RATIO 0.3 (1.1-1.5); ALKALINE PHOSPHATASE 110 IU/L (46-116); ANION GAP 10 (8-16); ASPARTATE AMINO TRANSFERASE 37 U/L (10-37); BILIRUBIN,TOTAL 0.9 MG/DL (0.1-1.0); BLOOD UREA NITROGEN 93 MG/DL (7-18); BUN/CREATININE RATIO 56.4 (5.4-32.0); CALCIUM 7.5 MG/DL (8.5-10.1); CHLORIDE 111 MMOL/L (99-107); CREATININE 1.65 MG/DL (0.60-1.10); GLUCOSE 196 MG/DL (70-104); MAGNESIUM 1.9 MG/DL (1.5-2.4); PHOSPHORUS 5.5 MG/DL (2.3-4.5); POTASSIUM 4.9 MMOL/L (3.5-5.1); SODIUM 143 MMOL/L (135-145); TOTAL CARBON DIOXIDE 22.3 MMOL/L (24-32); TOTAL PROTEIN 5.2 G/DL (6.4-8.2); eGFR 41 ML/MIN
[2021-08-10 03:40] LABS: ABG BASE EXCESS -7.1 mmol/L (-2.0-2.0); ABG OXYGEN SATURATION 93.6 % (94-97); ABG PCO2 (T) 43.3 mmHg (35.0-48.0); ABG PO2 (T) 82.9 mmHg (75.0-100.0); ALLEN'S TEST POSITIVE; FCOHb 0.3 % (0.0-3.9); FMetHb 0.1 % (0.0-1.5); FO2Hb 93.2 % (94-97); PATIENT TEMPERATURE 38.4; PEEP 10 cm H2O; RESPIRATORY RATE 16 b/min; TIDAL VOLUME 500 mL; TOTAL HEMOGLOBIN 10.9 G/dl (14.0-18.0)
[2021-08-10] MEDS: docusate sodium 100mg/10ml UD cup OGT SCH ×2 (07:17→20:36)
[2021-08-10] MEDS: methylPREDNISolone sod succ/PF 40mg inj. IV SCH (07:17)
[2021-08-10] MEDS: aspirin 81mg tab.chew OGT SCH (07:17)
[2021-08-10] MEDS: thiamine 100mg tablet OGT SCH (07:17)
[2021-08-10] MEDS: folic acid 1mg tablet PO SCH (07:18)
[2021-08-10] MEDS: lactobacillus rhamnosus 10,000 MMU CELLS/CAPSULE PO SCH ×2 (07:18→21:02)
[2021-08-10] MEDS: MULTIVIT-MIN/FERROUS GLUCONATE 9 MG/15 ML LIQUID OGT SCH (07:18)
[2021-08-10] MEDS: enoxaparin 80mg/0.8ml syringe SUBCUT SCH ×2 (07:19→21:02)
[2021-08-10] MEDS: QUEtiapine 25mg tablet OGT SCH ×2 (07:19→20:36)
[2021-08-10] MEDS: SODIUM ZIRCONIUM CYCLOSILICATE 10 GM POWD.PACK PO SCH (07:19)
[2021-08-10] MEDS: lansoprazole 15mg solutab OGT SCH (07:19)
[2021-08-10] MEDS: NORepinephrine 8mg/ 250ml NS 250 ML IV SCH (10:27)
--- NOTE | 2021-08-10 11:50 | NUR ---
Reassessment: Pt remains intubated and tolerating TF at goal rate with GRV WNL. Noted serum Phos is elevated at this time at 5.5 mg/dL, up from 3.7 mg/dL 08/09, no need for Phos binder at this time per MD at critical care rounds. LBM 08/09, documented with 200 mL stool output from rectal tube per I&O. Pt continues receiving routine bowel care. No changes to nutrition recommendations at this time. Will continue to follow. Recommendations: 1) Continuous TF using Vital AF via OGT with goal rate of 80 mL/hr to provide 1920ml volume, 2304kcals, 144g protein, 1555ml H2O. To begin at 20 mL/hr and advance by 20 mL Q8H as tolerated to goal rate 2) Additional water flushes 200ml Q4H; monitor for adjustment needs 3) Prealbumin q Friday/, daily scaled weights 4) Routine bowel care 5) Monitor serum Phos and need for Phos binder Addendum: 08/10/21 at [address] Amended: Links added.
[2021-08-10] MEDS ORDERED: EPOETIN ALFA-EPBX 20,000 UNIT/ML 1 ML MDV SQ ONE (12:30)
[2021-08-10 13:35] LABS: FERRITIN 713 NG/ML (26-388)
[2021-08-10 13:42] LABS: IRON 13 UG/DL (53-167)
[2021-08-10 13:43] LABS: % IRON SATURATION 6 % (11-46); TOTAL IRON BINDING CAPACITY 204 UG/DL (259-388)
[2021-08-10] MEDS: vancomycin/NS 1 GM ADD-VANTAGE 250 ML X 1 DOSE IV SCH (15:43)
[2021-08-10] MEDS: FENTANYL-0.9 % NACL/PF 100 ML IV PRN (17:15)
[2021-08-10] MEDS: insulin glargine (Lantus) pen - multi-dose SQ SCH (20:26)
[2021-08-10] MEDS: cefepime 2g/NS 100ml ADVANTAGE 100 ML IV SCH (21:01)
[2021-08-10] MEDS ORDERED: acetaminophen 325mg/10.15ml oral unit dose solution PO PRN (22:15)
[2021-08-11] VITALS (24 sets, daily range): BP systolic 87–117; BP diastolic 40–53
[2021-08-11] MEDS: mineral oil/petrolatum ophthal oint EACHEYE SCH ×4 (02:00→20:56)
[2021-08-11 02:30] LABS: ABG HCO3 18.2 mmol/L (22.0-26.0); ABG OXYGEN SATURATION 97.2 % (94-97); ABG PCO2 (T) 43.8 mmHg (35.0-48.0); ABG PO2 (T) 116.1 mmHg (75.0-100.0); ALLEN'S TEST POSITIVE; FCOHb 0.3 % (0.0-3.9); FMetHb 0.4 % (0.0-1.5); FO2Hb 96.5 % (94-97); PATIENT TEMPERATURE 39.2; PEEP 10 cm H2O; RESPIRATORY RATE 16 b/min; TIDAL VOLUME 500 mL; TOTAL HEMOGLOBIN 9.7 G/dl (14.0-18.0)
[2021-08-11] MEDS: insulin regular, human U-100 3ml vial - multi-dose SQ SCH ×4 (03:04→20:11)
[2021-08-11 03:48] LABS: BASOPHILS # (AUTO) 0.1 X10'3 (0-0.2); BASOPHILS % (AUTO) 0.2 % (0-1); EOSINOPHILS # (AUTO) 0.2 X10'3 (0-0.9); EOSINOPHILS % (AUTO) 0.7 % (0-6); HEMATOCRIT 26.8 % (42.0-52.0); HEMOGLOBIN 8.4 g/dl (14.0-17.9); LYMPHOCYTES # (AUTO) 0.2 X10'3 (1.1-4.8); LYMPHOCYTES % (AUTO) 1.2 % (21-51); MEAN CORPUSCULAR HEMOGLOBIN 28.9 PG (27.0-31.0); MEAN CORPUSCULAR HGB CONC 31.4 g/dL (33.0-36.5); MEAN CORPUSCULAR VOLUME 92.2 FL (78-98); MEAN PLATELET VOLUME 9.4 FL (7.4-10.4); MONOCYTES # (AUTO) 0.6 X10'3 (0-0.9); MONOCYTES % (AUTO) 2.9 % (2-12); NEUTROPHILS # (AUTO) 20.4 X10'3 (1.8-7.7); PLATELET COUNT 242 X10'3 (140-440); RED CELL DISTRIBUTION WIDTH 15.1 % (11.5-14.5); WHITE BLOOD COUNT 21.5 X10'3 (4.5-11.0)
[2021-08-11 04:10] LABS: D-DIMER 4.05 MG/L FEU (0-0.50)
[2021-08-11 04:20] LABS: ALANINE AMINOTRANSFERASE 84 U/L (12-78); ALBUMIN 1.1 G/DL (3.4-5.0); ALBUMIN/GLOBULIN RATIO 0.3 (1.1-1.5); ALKALINE PHOSPHATASE 108 IU/L (46-116); ANION GAP 12 (8-16); ASPARTATE AMINO TRANSFERASE 33 U/L (10-37); BILIRUBIN,TOTAL 0.8 MG/DL (0.1-1.0); BLOOD UREA NITROGEN 102 MG/DL (7-18); BUN/CREATININE RATIO 53.4 (5.4-32.0); C-REACTIVE PROTEIN 23.29 MG/DL (0.0-0.5); CALCIUM 7.4 MG/DL (8.5-10.1); CHLORIDE 110 MMOL/L (99-107); CREATININE 1.91 MG/DL (0.60-1.10); GLUCOSE 135 MG/DL (70-104); MAGNESIUM 2.1 MG/DL (1.5-2.4); PHOSPHORUS 5.4 MG/DL (2.3-4.5); POTASSIUM 5.5 MMOL/L (3.5-5.1); SODIUM 142 MMOL/L (135-145); TOTAL CARBON DIOXIDE 20.1 MMOL/L (24-32); TOTAL PROTEIN 5.3 G/DL (6.4-8.2); eGFR 35 ML/MIN
[2021-08-11] MEDS: NORepinephrine 8mg/ 250ml NS 250 ML IV SCH ×2 (04:46→20:05)
[2021-08-11] MEDS: FENTANYL-0.9 % NACL/PF 100 ML IV PRN ×4 (04:50→21:11)
[2021-08-11 05:25] LABS: CLARITY,URINE CLOUDY (Clear); COLOR,URINE YELLOW (Yellow); GLUCOSE, URINE NEGATIVE (Neg); KETONES,URINE NEGATIVE (Neg); LEUKOCYTE ESTERASE ,URINE MODERATE (Neg); NITRITES, URINE NEGATIVE (Neg); OCCULT BLOOD,URINE MODERATE (Neg); PROTEIN,URINE TRACE mg/dl (Neg); UA COLLECTION TYPE FOLEY CATH
[2021-08-11 05:34] LABS: SQUAMOUS EPITHELIAL CELL,UR FEW /LPF (FEW)
[2021-08-11 05:36] LABS: WBC CLUMPS,URINE MODERATE /HPF (NEGATIVE)
[2021-08-11 05:37] LABS: YEAST MANY /HPF (NEGATIVE)
[2021-08-11 05:38] LABS: BACTERIA,URINE NONE SEEN /HPF (Neg); WBC,URINE 30-50 /HPF (0-4)
[2021-08-11 05:39] LABS: CELLULAR CAST 0-4 /LPF (NEGATIVE)
[2021-08-11] MEDS: cefepime 2g/NS 100ml ADVANTAGE 100 ML IV SCH ×2 (07:53→20:48)
[2021-08-11] MEDS: midazolam 100mg in NS 100ml 100 ML IV PRN ×2 (07:53→15:30)
[2021-08-11] MEDS: thiamine 100mg tablet OGT SCH (07:56)
[2021-08-11] MEDS: MULTIVIT-MIN/FERROUS GLUCONATE 9 MG/15 ML LIQUID OGT SCH (07:56)
[2021-08-11] MEDS: lactobacillus rhamnosus 10,000 MMU CELLS/CAPSULE PO SCH ×2 (07:56→20:48)
[2021-08-11] MEDS: docusate sodium 100mg/10ml UD cup OGT SCH ×2 (07:56→20:47)
[2021-08-11] MEDS: QUEtiapine 25mg tablet OGT SCH ×2 (07:56→20:47)
[2021-08-11] MEDS: methylPREDNISolone sod succ/PF 40mg inj. IV SCH (07:56)
[2021-08-11] MEDS: lansoprazole 15mg solutab OGT SCH (07:56)
[2021-08-11] MEDS: SODIUM ZIRCONIUM CYCLOSILICATE 10 GM POWD.PACK PO SCH (07:56)
[2021-08-11] MEDS: aspirin 81mg tab.chew OGT SCH (07:56)
[2021-08-11] MEDS: folic acid 1mg tablet PO SCH (07:56)
[2021-08-11] MEDS: enoxaparin 80mg/0.8ml syringe SUBCUT SCH ×2 (07:57→20:53)
[2021-08-11] MEDS: dexmedetomidine/D5W 100mL 100 ML IV SCH ×4 (08:58→19:16)
[2021-08-11] MEDS: furosemide 40mg/4ml inj IV SCH ×2 (12:28→16:18)
[2021-08-11] MEDS: sodium ferric gluc complex inj 125 MG in normal saline 100ml IV soln 90 ML IV SCH (13:54)
[2021-08-11 14:49] LABS: OCCULT BLOOD STOOL POSITIVE (Neg)
[2021-08-11] MEDS: vancomycin/NS 1 GM ADD-VANTAGE 250 ML X 1 DOSE IV SCH (15:25)
--- NOTE | 2021-08-11 18:24 | NUR ---
Problems reprioritized. Patient report given, questions answered & plan of care reviewed with CHUCHO Neil.
[2021-08-11] MEDS: insulin glargine (Lantus) pen - multi-dose SQ SCH (20:12)
[2021-08-12] VITALS (24 sets, daily range): BP systolic 100–148; BP diastolic 45–72
[2021-08-12] MEDS: FENTANYL-0.9 % NACL/PF 100 ML IV PRN ×5 (01:54→22:02)
[2021-08-12] MEDS: dexmedetomidine/D5W 100mL 100 ML IV SCH ×7 (01:55→22:57)
[2021-08-12] MEDS: mineral oil/petrolatum ophthal oint EACHEYE SCH ×4 (02:13→20:44)
[2021-08-12] MEDS: furosemide 40mg/4ml inj IV SCH ×4 (02:15→23:47)
[2021-08-12 03:39] LABS: BASOPHILS % (AUTO) 0.2 % (0-1); EOSINOPHILS % (AUTO) 0.2 % (0-6); HEMATOCRIT 22.2 % (42.0-52.0); LYMPHOCYTES # (AUTO) 0.4 X10'3 (1.1-4.8); LYMPHOCYTES % (AUTO) 2.8 % (21-51); MEAN CORPUSCULAR HEMOGLOBIN 29.3 PG (27.0-31.0); MEAN CORPUSCULAR HGB CONC 31.6 g/dL (33.0-36.5); MEAN CORPUSCULAR VOLUME 92.8 FL (78-98); MEAN PLATELET VOLUME 8.8 FL (7.4-10.4); MONOCYTES # (AUTO) 0.6 X10'3 (0-0.9); MONOCYTES % (AUTO) 4.1 % (2-12); NEUTROPHILS % (AUTO) 92.7 % (42-75); PLATELET COUNT 185 X10'3 (140-440); RED BLOOD COUNT 2.39 X10'6 (4.70-6.10); RED CELL DISTRIBUTION WIDTH 15.3 % (11.5-14.5); WHITE BLOOD COUNT 14.1 X10'3 (4.5-11.0)
[2021-08-12 03:49] LABS: D-DIMER 3.25 MG/L FEU (0-0.50)
[2021-08-12 03:56] LABS: ALANINE AMINOTRANSFERASE 66 U/L (12-78); ALBUMIN 0.9 G/DL (3.4-5.0); ALBUMIN/GLOBULIN RATIO 0.2 (1.1-1.5); ALKALINE PHOSPHATASE 97 IU/L (46-116); ANION GAP 11 (8-16); ASPARTATE AMINO TRANSFERASE 27 U/L (10-37); BILIRUBIN,TOTAL 0.5 MG/DL (0.1-1.0); BLOOD UREA NITROGEN 119 MG/DL (7-18); BUN/CREATININE RATIO 54.1 (5.4-32.0); C-REACTIVE PROTEIN 23.29 MG/DL (0.0-0.5); CALCIUM 7.2 MG/DL (8.5-10.1); CHLORIDE 106 MMOL/L (99-107); GLUCOSE 171 MG/DL (70-104); POTASSIUM 5.2 MMOL/L (3.5-5.1); SODIUM 138 MMOL/L (135-145); TOTAL CARBON DIOXIDE 21.2 MMOL/L (24-32); eGFR 29 ML/MIN
[2021-08-12 04:22] LABS: ABG BASE EXCESS -9.4 mmol/L (-2.0-2.0); ABG HCO3 17.3 mmol/L (22.0-26.0); ABG OXYGEN SATURATION 93.5 % (94-97); ABG PCO2 (T) 41.2 mmHg (35.0-48.0); ABG PO2 (T) 76.4 mmHg (75.0-100.0); ALLEN'S TEST POSITIVE; FCOHb 0.3 % (0.0-3.9); FMetHb 0.3 % (0.0-1.5); FO2Hb 92.9 % (94-97); PEEP 10 cm H2O; RESPIRATORY RATE 16 b/min; TIDAL VOLUME 500 mL; TOTAL HEMOGLOBIN 7.9 G/dl (14.0-18.0)
[2021-08-12] MEDS: midazolam 100mg in NS 100ml 100 ML IV PRN ×3 (05:35→17:22)
[2021-08-12] MEDS: MULTIVIT-MIN/FERROUS GLUCONATE 9 MG/15 ML LIQUID OGT SCH (08:11)
[2021-08-12] MEDS: docusate sodium 100mg/10ml UD cup OGT SCH ×2 (08:11→20:44)
[2021-08-12] MEDS: SODIUM ZIRCONIUM CYCLOSILICATE 10 GM POWD.PACK PO SCH (08:11)
[2021-08-12] MEDS: lansoprazole 15mg solutab OGT SCH (08:13)
[2021-08-12] MEDS: thiamine 100mg tablet OGT SCH (08:13)
[2021-08-12] MEDS: aspirin 81mg tab.chew OGT SCH (08:13)
[2021-08-12] MEDS: lactobacillus rhamnosus 10,000 MMU CELLS/CAPSULE PO SCH ×2 (08:13→20:44)
[2021-08-12] MEDS: cefepime 2g/NS 100ml ADVANTAGE 100 ML IV SCH ×2 (08:13→20:43)
[2021-08-12] MEDS: QUEtiapine 25mg tablet OGT SCH ×2 (08:13→20:44)
[2021-08-12] MEDS: methylPREDNISolone sod succ/PF 40mg inj. IV SCH (08:14)
[2021-08-12] MEDS: folic acid 1mg tablet PO SCH (08:14)
[2021-08-12] MEDS: insulin regular, human U-100 3ml vial - multi-dose SQ SCH ×3 (08:19→20:54)
[2021-08-12] MEDS: NORepinephrine 8mg/ 250ml NS 250 ML IV SCH ×2 (09:16→11:16)
--- NOTE | 2021-08-12 10:00 | NUR ---
New DTI noted upon assessment this am. Pics obtained for chart, WOC consult ordered and foam dressing applied as there was not a dressing in place yet.
[2021-08-12] MEDS: sodium ferric gluc complex inj 125 MG in normal saline 100ml IV soln 90 ML IV SCH (10:48)
--- NOTE | 2021-08-12 10:57 | NUR ---
1 unit PRBC transfused this am with no adverse reaction.
--- NOTE | 2021-08-12 12:00 | NUR ---
ROUNDS NOTE: Dr. Rausch aware of mouth bleeding, low H/H and 1 unit PRBC given, Lovenox being on hold per noc MD, current vent settings and VS. Ordered 6 hour spot urines and volume.
[2021-08-12] MEDS: vancomycin/NS 1 GM ADD-VANTAGE 250 ML X 1 DOSE IV SCH (13:54)
[2021-08-12] MEDS ORDERED: tPA-cathflo 2 MG/2 ml IV flush IVF ONE (17:25)
--- NOTE | 2021-08-12 18:25 | NUR ---
Patient in room CICU 2007. I have received report from Sunita RANKIN and had the opportunity to ask questions and assume patient care.
--- NOTE | 2021-08-12 18:26 | NUR ---
Problems reprioritized. Patient report given, questions answered & plan of care reviewed with Bryan RANKIN. Addendum: 08/12/21 at 1826 by Sunita Aguila RN Amended: Links added.
--- NOTE | 2021-08-12 19:00 | NUR ---
Total of 1100 ml of urine drained from gaytan bag. Urine timed from 1300 to 1900 per MD orders.
[2021-08-12 20:00] LABS: TOTAL PROTEIN,URINE RANDOM 42.4 MG/DL
[2021-08-12] MEDS: insulin glargine (Lantus) pen - multi-dose SQ SCH (20:55)
[2021-08-13] VITALS (24 sets, daily range): BP systolic 85–153; BP diastolic 44–64
[2021-08-13] MEDS: midazolam 100mg in NS 100ml 100 ML IV PRN ×3 (00:22→15:58)
[2021-08-13] MEDS: mineral oil/petrolatum ophthal oint EACHEYE SCH ×4 (02:14→20:10)
[2021-08-13] MEDS: dexmedetomidine/D5W 100mL 100 ML IV SCH ×4 (02:27→21:05)
[2021-08-13] MEDS: insulin regular, human U-100 3ml vial - multi-dose SQ SCH ×4 (03:09→20:16)
[2021-08-13 03:15] LABS: BASOPHILS # (AUTO) 0.1 X10'3 (0-0.2); BASOPHILS % (AUTO) 0.4 % (0-1); EOSINOPHILS # (AUTO) 0.1 X10'3 (0-0.9); EOSINOPHILS % (AUTO) 0.7 % (0-6); HEMATOCRIT 24.2 % (42.0-52.0); HEMOGLOBIN 8.2 g/dl (14.0-17.9); LYMPHOCYTES # (AUTO) 0.6 X10'3 (1.1-4.8); LYMPHOCYTES % (AUTO) 4.2 % (21-51); MEAN CORPUSCULAR HEMOGLOBIN 30.6 PG (27.0-31.0); MEAN CORPUSCULAR HGB CONC 33.9 g/dL (33.0-36.5); MEAN CORPUSCULAR VOLUME 90.2 FL (78-98); MONOCYTES # (AUTO) 0.6 X10'3 (0-0.9); MONOCYTES % (AUTO) 4.2 % (2-12); NEUTROPHILS # (AUTO) 12.9 X10'3 (1.8-7.7); NEUTROPHILS % (AUTO) 90.5 % (42-75); PLATELET COUNT 192 X10'3 (140-440); RED BLOOD COUNT 2.68 X10'6 (4.70-6.10); RED CELL DISTRIBUTION WIDTH 15.2 % (11.5-14.5); WHITE BLOOD COUNT 14.3 X10'3 (4.5-11.0)
[2021-08-13] MEDS: FENTANYL-0.9 % NACL/PF 100 ML IV PRN ×4 (03:41→22:40)
[2021-08-13 03:43] LABS: ABG HCO3 17.9 mmol/L (22.0-26.0); ABG OXYGEN SATURATION 93.8 % (94-97); ABG PCO2 (T) 39.1 mmHg (35.0-48.0); ABG PO2 (T) 79.4 mmHg (75.0-100.0); ALLEN'S TEST POSITIVE; FCOHb 0.1 % (0.0-3.9); FO2Hb 93.7 % (94-97); PATIENT TEMPERATURE 37.5; PEEP 10 cm H2O; RESPIRATORY RATE 16 b/min; TIDAL VOLUME 500 mL; TOTAL HEMOGLOBIN 9.1 G/dl (14.0-18.0)
[2021-08-13 03:51] LABS: ALANINE AMINOTRANSFERASE 60 U/L (12-78); ALBUMIN/GLOBULIN RATIO 0.2 (1.1-1.5); ALKALINE PHOSPHATASE 91 IU/L (46-116); ANION GAP 11 (8-16); ASPARTATE AMINO TRANSFERASE 24 U/L (10-37); BILIRUBIN,TOTAL 0.5 MG/DL (0.1-1.0); BLOOD UREA NITROGEN 126 MG/DL (7-18); BUN/CREATININE RATIO 58.6 (5.4-32.0); CALCIUM 7.2 MG/DL (8.5-10.1); CHLORIDE 109 MMOL/L (99-107); CREATININE 2.15 MG/DL (0.60-1.10); GLUCOSE 150 MG/DL (70-104); MAGNESIUM 2.1 MG/DL (1.5-2.4); PHOSPHORUS 6.1 MG/DL (2.3-4.5); POTASSIUM 4.7 MMOL/L (3.5-5.1); PREALBUMIN 16.4 MG/DL (19-36); SODIUM 141 MMOL/L (135-145); TOTAL PROTEIN 5.2 G/DL (6.4-8.2); eGFR 30 ML/MIN
--- NOTE | 2021-08-13 06:19 | NUR ---
Problems reprioritized. Patient report given, questions answered & plan of care reviewed with Sunita RANKIN.
--- NOTE | 2021-08-13 06:55 | NUR ---
Patient in room CICU 2007. I have received report from Bryan RANKIN and had the opportunity to ask questions and assume patient care.
[2021-08-13] MEDS: docusate sodium 100mg/10ml UD cup OGT SCH ×2 (07:38→20:05)
[2021-08-13] MEDS: folic acid 1mg tablet PO SCH (07:38)
[2021-08-13] MEDS: furosemide 40mg/4ml inj IV SCH ×2 (07:38→15:37)
[2021-08-13] MEDS: lactobacillus rhamnosus 10,000 MMU CELLS/CAPSULE PO SCH ×2 (07:38→20:06)
[2021-08-13] MEDS: MULTIVIT-MIN/FERROUS GLUCONATE 9 MG/15 ML LIQUID OGT SCH (07:38)
[2021-08-13] MEDS: thiamine 100mg tablet OGT SCH (07:38)
[2021-08-13] MEDS: aspirin 81mg tab.chew OGT SCH (07:38)
[2021-08-13] MEDS: lansoprazole 15mg solutab OGT SCH (07:38)
[2021-08-13] MEDS: cefepime 2g/NS 100ml ADVANTAGE 100 ML IV SCH (07:39)
--- NOTE | 2021-08-13 07:46 | NUR ---
ETT FOUND AT 21 CM AT THE TEETH. ADVANCED BACK TO 24 CM AT THE TEETH. Addendum: 08/13/21 at 0747 by [address] RT Amended: Links added.
[2021-08-13] MEDS: QUEtiapine 25mg tablet OGT SCH ×2 (07:50→20:05)
[2021-08-13] MEDS: SODIUM ZIRCONIUM CYCLOSILICATE 10 GM POWD.PACK PO SCH (07:51)
[2021-08-13] MEDS: methylPREDNISolone sod succ/PF 40mg inj. IV SCH (08:03)
[2021-08-13] MEDS: sodium ferric gluc complex inj 125 MG in normal saline 100ml IV soln 90 ML IV SCH (09:07)
--- NOTE | 2021-08-13 11:50 | NUR ---
F/u 08/13: Pt +18.5L fluid balance started on lasix w/ free water to be held at this time per nutrition technician; updated recs below. Temporarily out of Vital AF and Vital High Protein formulas until tomorrow; Nepro 1.8 to run at half current goal rate temporarily given high calorie density; TAMMY d/w RN. Recommendations: 1) Continuous TF using Vital AF via OGT with goal rate of 80 mL/hr to provide 1920ml volume, 2304kcals, 144g protein, 1555ml H2O. To begin at 20 mL/hr and advance by 20 mL Q8H as tolerated to goal rate 2) Additional water flushes per nutrition technician; +18.5L fluid balance 3) Prealbumin q Friday/, daily scaled weights 4) Routine bowel care 5) Monitor serum Phos and need for Phos binder per MD 6) Continue routine MVM with iron, Thiamine, and Folic acid for EtOH hx Addendum: 08/13/21 at [address] Amended: Links added.
[2021-08-13] MEDS: pantoprazole 40MG/NS 100ML BAG 100 ML IV SCH ×3 (12:01→22:31)
--- NOTE | 2021-08-13 12:08 | NUR ---
Lyle MUNOZ stated to dc water flushes.
[2021-08-13] MEDS ORDERED: VANCOMYCIN LEVEL IV ONE (13:30)
[2021-08-13] MEDS ORDERED: EPOETIN ALFA-EPBX 20,000 UNIT/ML 1 ML MDV SQ ONE (14:00)
[2021-08-13] MEDS: vancomycin/NS 1 GM ADD-VANTAGE 250 ML X 1 DOSE IV SCH ×2 (14:00→15:18)
[2021-08-13] MEDS: NORepinephrine 8mg/ 250ml NS 250 ML IV SCH (16:50)
--- NOTE | 2021-08-13 18:15 | NUR ---
Patient in room CICU 2007. I have received report from Sunita RANKIN and had the opportunity to ask questions and assume patient care.
--- NOTE | 2021-08-13 18:19 | NUR ---
Problems reprioritized. Patient report given, questions answered & plan of care reviewed with Bryan RANKIN. Addendum: 08/13/21 at 1820 by Sunita Aguila RN Amended: Links added.
[2021-08-13] MEDS: enoxaparin 30mg/0.3ml syringe SUBCUT SCH (20:17)
[2021-08-13] MEDS: insulin glargine (Lantus) pen - multi-dose SQ SCH (20:17)
[2021-08-14] VITALS (24 sets, daily range): BP systolic 90–152; BP diastolic 44–81
[2021-08-14] MEDS: furosemide 40mg/4ml inj IV SCH ×4 (00:13→23:01)
[2021-08-14] MEDS: pantoprazole 40MG/NS 100ML BAG 100 ML IV SCH ×5 (02:15→23:01)
[2021-08-14] MEDS: insulin regular, human U-100 3ml vial - multi-dose SQ SCH ×4 (02:17→20:56)
[2021-08-14] MEDS: mineral oil/petrolatum ophthal oint EACHEYE SCH ×4 (02:17→19:14)
[2021-08-14] MEDS: midazolam 100mg in NS 100ml 100 ML IV PRN ×4 (02:29→21:15)
[2021-08-14 03:11] LABS: BASOPHILS # (AUTO) 0.1 X10'3 (0-0.2); BASOPHILS % (AUTO) 0.4 % (0-1); EOSINOPHILS # (AUTO) 0.2 X10'3 (0-0.9); EOSINOPHILS % (AUTO) 1.6 % (0-6); HEMATOCRIT 29.5 % (42.0-52.0); HEMOGLOBIN 9.5 g/dl (14.0-17.9); LYMPHOCYTES # (AUTO) 0.8 X10'3 (1.1-4.8); LYMPHOCYTES % (AUTO) 5.3 % (21-51); MEAN CORPUSCULAR HEMOGLOBIN 29.5 PG (27.0-31.0); MEAN CORPUSCULAR HGB CONC 32.1 g/dL (33.0-36.5); MEAN CORPUSCULAR VOLUME 91.7 FL (78-98); MEAN PLATELET VOLUME 8.8 FL (7.4-10.4); MONOCYTES # (AUTO) 0.7 X10'3 (0-0.9); MONOCYTES % (AUTO) 4.7 % (2-12); NEUTROPHILS # (AUTO) 13.3 X10'3 (1.8-7.7); PLATELET COUNT 218 X10'3 (140-440); RED BLOOD COUNT 3.21 X10'6 (4.70-6.10); RED CELL DISTRIBUTION WIDTH 15.4 % (11.5-14.5); WHITE BLOOD COUNT 15.1 X10'3 (4.5-11.0)
[2021-08-14] MEDS: dexmedetomidine/D5W 100mL 100 ML IV SCH ×5 (03:13→23:00)
[2021-08-14 03:20] LABS: ABG BASE EXCESS -8.2 mmol/L (-2.0-2.0); ABG HCO3 18.8 mmol/L (22.0-26.0); ABG OXYGEN SATURATION 88.8 % (94-97); ABG PCO2 (T) 43.4 mmHg (35.0-48.0); ABG PO2 (T) 58.9 mmHg (75.0-100.0); ALLEN'S TEST POSITIVE; FCOHb 0.2 % (0.0-3.9); FMetHb 0.3 % (0.0-1.5); FO2Hb 88.4 % (94-97); PATIENT TEMPERATURE 36.6; PEEP 10 cm H2O; RESPIRATORY RATE 16 b/min; TIDAL VOLUME 500 mL; TOTAL HEMOGLOBIN 12.6 G/dl (14.0-18.0)
[2021-08-14 03:33] LABS: ALANINE AMINOTRANSFERASE 68 U/L (12-78); ALBUMIN 1.2 G/DL (3.4-5.0); ALBUMIN/GLOBULIN RATIO 0.3 (1.1-1.5); ALKALINE PHOSPHATASE 99 IU/L (46-116); ANION GAP 12 (8-16); ASPARTATE AMINO TRANSFERASE 28 U/L (10-37); BILIRUBIN,TOTAL 0.5 MG/DL (0.1-1.0); BLOOD UREA NITROGEN 128 MG/DL (7-18); BUN/CREATININE RATIO 61.2 (5.4-32.0); CALCIUM 7.7 MG/DL (8.5-10.1); CHLORIDE 109 MMOL/L (99-107); CREATININE 2.09 MG/DL (0.60-1.10); GLUCOSE 111 MG/DL (70-104); PHOSPHORUS 5.7 MG/DL (2.3-4.5); POTASSIUM 4.5 MMOL/L (3.5-5.1); SODIUM 143 MMOL/L (135-145); TOTAL CARBON DIOXIDE 22.5 MMOL/L (24-32); TOTAL PROTEIN 5.7 G/DL (6.4-8.2); eGFR 31 ML/MIN
[2021-08-14] MEDS: FENTANYL-0.9 % NACL/PF 100 ML IV PRN ×5 (03:45→22:07)
--- NOTE | 2021-08-14 06:21 | NUR ---
Problems reprioritized. Patient report given, questions answered & plan of care reviewed with Sunita RANKIN.
[2021-08-14] MEDS: cefepime 2g/NS 100ml ADVANTAGE 100 ML IV SCH (07:14)
[2021-08-14] MEDS: lactobacillus rhamnosus 10,000 MMU CELLS/CAPSULE PO SCH (07:14)
[2021-08-14] MEDS: methylPREDNISolone sod succ/PF 40mg inj. IV SCH (07:14)
[2021-08-14] MEDS: QUEtiapine 25mg tablet OGT SCH ×2 (07:14→19:13)
[2021-08-14] MEDS: thiamine 100mg tablet OGT SCH (07:15)
[2021-08-14] MEDS: docusate sodium 100mg/10ml UD cup OGT SCH ×2 (07:15→19:13)
[2021-08-14] MEDS: MULTIVIT-MIN/FERROUS GLUCONATE 9 MG/15 ML LIQUID OGT SCH (07:15)
[2021-08-14] MEDS: SODIUM ZIRCONIUM CYCLOSILICATE 10 GM POWD.PACK PO SCH (07:15)
[2021-08-14] MEDS: folic acid 1mg tablet PO SCH (07:15)
[2021-08-14] MEDS: aspirin 81mg tab.chew OGT SCH (07:16)
[2021-08-14 07:53] LABS: NUCLEATED RED BLOOD CELLS 1 /100WBC (0-0); TOTAL CELLS COUNTED 200
[2021-08-14 07:55] LABS: ELLIPTOCYTES FEW; HYPOCHROMASIA 1+; PLATELET ESTIMATE NORMAL; POLYCHROMASIA 1+; TEAR DROP CELLS FEW
[2021-08-14] MEDS: sodium ferric gluc complex inj 125 MG in normal saline 100ml IV soln 90 ML IV SCH (08:31)
[2021-08-14] MEDS: NORepinephrine 8mg/ 250ml NS 250 ML IV SCH ×2 (08:37→21:43)
--- NOTE | 2021-08-14 09:31 | NUR ---
Sedation vacation given at 0900. Pt. was peak-pressuring vent and RR increased to 40 bpm. Sedation resumed.
[2021-08-14] MEDS ORDERED: cholecalciferol (vitamin D3) 1,000 unit (25mcg) tablet PO SCH (11:15)
[2021-08-14] MEDS ORDERED: SODIUM ZIRCONIUM CYCLOSILICATE 10 GM POWD.PACK OGT SCH (11:16)
[2021-08-14] MEDS: sevelamer carbonate 0.8gm powder pkt OGT SCH ×2 (12:17→17:02)
--- NOTE | 2021-08-14 12:29 | NUR ---
Reassessment: Pt remains intubated and tolerating TF at goal rate with GRV WNL. Pt no longer receiving water flushes per MD. Noted serum Phos is elevated at 5.7 mg/dL, to begin a Phos binder today per MD. LBM 08/14, documented with diarrhea though continues to receive routine bowel care. No changes to nutrition recommendations at this time. Will continue to follow closely. Recommendations: 1) Continuous TF using Vital AF via OGT with goal rate of 80 mL/hr to provide 1920ml volume, 2304kcals, 144g protein, 1555ml H2O. To begin at 20 mL/hr and advance by 20 mL Q8H as tolerated to goal rate 2) Additional water flushes per public safety officer; +16.7L fluid balance 3) Prealbumin q Friday/, daily scaled weights 4) Routine bowel care 5) Routine Phos binder per MD 6) Continue routine MVM with iron, Thiamine, and Folic acid for EtOH hx Addendum: 08/14/21 at [address] Amended: Links added.
[2021-08-14] MEDS: vancomycin/NS 1 GM ADD-VANTAGE 250 ML X 1 DOSE IV SCH (13:57)
--- NOTE | 2021-08-14 18:14 | NUR ---
Problems reprioritized. Patient report given, questions answered & plan of care reviewed with LIGIA RANKIN. Addendum: 08/14/21 at 1814 by Sunita Aguila RN Amended: Links added.
[2021-08-14] MEDS: enoxaparin 30mg/0.3ml syringe SUBCUT SCH (19:12)
[2021-08-14] MEDS: lactobacillus rhamnosus 10,000 MMU CELLS/CAPSULE OGT SCH (19:13)
[2021-08-14] MEDS: insulin glargine (Lantus) pen - multi-dose SQ SCH (20:54)
[2021-08-15] VITALS (22 sets, daily range): BP systolic 92–139; BP diastolic 45–55
[2021-08-15] MEDS: FENTANYL-0.9 % NACL/PF 100 ML IV PRN ×5 (01:45→19:47)
[2021-08-15] MEDS: insulin regular, human U-100 3ml vial - multi-dose SQ SCH ×4 (02:22→19:30)
[2021-08-15] MEDS: mineral oil/petrolatum ophthal oint EACHEYE SCH ×4 (02:30→19:21)
[2021-08-15 02:45] LABS: ABG BASE EXCESS -3.9 mmol/L (-2.0-2.0); ABG HCO3 22.5 mmol/L (22.0-26.0); ABG OXYGEN SATURATION 88.3 % (94-97); ABG PCO2 (T) 47.4 mmHg (35.0-48.0); ABG PO2 (T) 61.4 mmHg (75.0-100.0); ALLEN'S TEST POSITIVE; FCOHb 0.3 % (0.0-3.9); FMetHb 0.4 % (0.0-1.5); FO2Hb 87.7 % (94-97); PEEP 10 cm H2O; RESPIRATORY RATE 16 b/min; TIDAL VOLUME 500 mL; TOTAL HEMOGLOBIN 8.8 G/dl (14.0-18.0)
[2021-08-15 03:02] LABS: BASOPHILS % (AUTO) 0.1 % (0-1); EOSINOPHILS # (AUTO) 0.3 X10'3 (0-0.9); HEMATOCRIT 23.6 % (42.0-52.0); HEMOGLOBIN 7.7 g/dl (14.0-17.9); LYMPHOCYTES # (AUTO) 0.6 X10'3 (1.1-4.8); LYMPHOCYTES % (AUTO) 4.1 % (21-51); MEAN CORPUSCULAR HEMOGLOBIN 29.7 PG (27.0-31.0); MEAN CORPUSCULAR HGB CONC 32.8 g/dL (33.0-36.5); MEAN CORPUSCULAR VOLUME 90.5 FL (78-98); MEAN PLATELET VOLUME 8.4 FL (7.4-10.4); MONOCYTES # (AUTO) 0.5 X10'3 (0-0.9); MONOCYTES % (AUTO) 3.5 % (2-12); NEUTROPHILS # (AUTO) 12.4 X10'3 (1.8-7.7); NEUTROPHILS % (AUTO) 90.3 % (42-75); PLATELET COUNT 176 X10'3 (140-440); RED BLOOD COUNT 2.61 X10'6 (4.70-6.10); RED CELL DISTRIBUTION WIDTH 15.5 % (11.5-14.5); WHITE BLOOD COUNT 13.8 X10'3 (4.5-11.0)
[2021-08-15 03:18] LABS: ALANINE AMINOTRANSFERASE 52 U/L (12-78); ALBUMIN/GLOBULIN RATIO 0.3 (1.1-1.5); ALKALINE PHOSPHATASE 87 IU/L (46-116); ANION GAP 10 (8-16); ASPARTATE AMINO TRANSFERASE 20 U/L (10-37); BILIRUBIN,TOTAL 0.4 MG/DL (0.1-1.0); BLOOD UREA NITROGEN 128 MG/DL (7-18); BUN/CREATININE RATIO 62.1 (5.4-32.0); C-REACTIVE PROTEIN 8.37 MG/DL (0.0-0.5); CALCIUM 7.2 MG/DL (8.5-10.1); CHLORIDE 112 MMOL/L (99-107); CREATININE 2.06 MG/DL (0.60-1.10); GLUCOSE 133 MG/DL (70-104); MAGNESIUM 1.8 MG/DL (1.5-2.4); PHOSPHORUS 5.7 MG/DL (2.3-4.5); POTASSIUM 3.9 MMOL/L (3.5-5.1); SODIUM 147 MMOL/L (135-145); TOTAL CARBON DIOXIDE 24.7 MMOL/L (24-32); TOTAL PROTEIN 4.8 G/DL (6.4-8.2); eGFR 32 ML/MIN
[2021-08-15 03:23] LABS: D-DIMER 5.78 MG/L FEU (0-0.50)
[2021-08-15] MEDS: midazolam 100mg in NS 100ml 100 ML IV PRN ×4 (03:59→21:39)
[2021-08-15] MEDS: pantoprazole 40MG/NS 100ML BAG 100 ML IV SCH ×4 (04:22→20:31)
[2021-08-15 05:00] LABS: TOTAL CELLS COUNTED 100
[2021-08-15 05:01] LABS: HYPOCHROMASIA 1+; PLATELET ESTIMATE NORMAL; POLYCHROMASIA FEW
[2021-08-15 05:02] LABS: TEAR DROP CELLS FEW
[2021-08-15] MEDS: dexmedetomidine/D5W 100mL 100 ML IV SCH ×3 (06:20→23:36)
[2021-08-15] MEDS: furosemide 40mg/4ml inj IV SCH ×3 (08:31→23:36)
[2021-08-15] MEDS: MULTIVIT-MIN/FERROUS GLUCONATE 9 MG/15 ML LIQUID OGT SCH (08:31)
[2021-08-15] MEDS: docusate sodium 100mg/10ml UD cup OGT SCH ×2 (08:31→19:21)
[2021-08-15] MEDS: methylPREDNISolone sod succ/PF 40mg inj. IV SCH (08:32)
[2021-08-15] MEDS: folic acid 1mg tablet OGT SCH (08:32)
[2021-08-15] MEDS: thiamine 100mg tablet OGT SCH (08:32)
[2021-08-15] MEDS: cholecalciferol (vitamin D3) 1,000 unit (25mcg) tablet OGT SCH (08:33)
[2021-08-15] MEDS: QUEtiapine 25mg tablet OGT SCH ×2 (08:33→19:20)
[2021-08-15] MEDS: aspirin 81mg tab.chew OGT SCH (08:33)
[2021-08-15] MEDS: lactobacillus rhamnosus 10,000 MMU CELLS/CAPSULE OGT SCH ×2 (08:34→19:20)
[2021-08-15] MEDS: sevelamer carbonate 0.8gm powder pkt OGT SCH ×3 (08:35→19:27)
[2021-08-15] MEDS: cefepime 2g/NS 100ml ADVANTAGE 100 ML IV SCH (08:36)
[2021-08-15] MEDS: sodium ferric gluc complex inj 125 MG in normal saline 100ml IV soln 90 ML IV SCH (08:53)
[2021-08-15] MEDS: vancomycin/NS 1 GM ADD-VANTAGE 250 ML X 1 DOSE IV SCH (14:45)
[2021-08-15] MEDS: NORepinephrine 8mg/ 250ml NS 250 ML IV SCH (16:11)
[2021-08-15] MEDS: enoxaparin 30mg/0.3ml syringe SUBCUT SCH (19:22)
[2021-08-15] MEDS: insulin glargine (Lantus) pen - multi-dose SQ SCH (20:27)
[2021-08-16] VITALS (30 sets, daily range): BP systolic 97–148; BP diastolic 40–60
[2021-08-16] MEDS: FENTANYL-0.9 % NACL/PF 100 ML IV PRN ×2 (00:17→04:25)
[2021-08-16] MEDS: mineral oil/petrolatum ophthal oint EACHEYE SCH ×4 (02:00→19:54)
[2021-08-16 02:15] LABS: EOSINOPHILS # (AUTO) 0.2 X10'3 (0-0.9); LYMPHOCYTES # (AUTO) 0.5 X10'3 (1.1-4.8); LYMPHOCYTES % (AUTO) 3.8 % (21-51); MEAN PLATELET VOLUME 8.7 FL (7.4-10.4); MONOCYTES # (AUTO) 0.4 X10'3 (0-0.9)
[2021-08-16 02:17] LABS: BASOPHILS # (AUTO) 0.1 X10'3 (0-0.2); BASOPHILS % (AUTO) 0.8 % (0-1); EOSINOPHILS % (AUTO) 1.6 % (0-6); HEMATOCRIT 29.8 % (42.0-52.0); HEMOGLOBIN 9.9 g/dl (14.0-17.9); MEAN CORPUSCULAR HGB CONC 33.1 g/dL (33.0-36.5); MEAN CORPUSCULAR VOLUME 90.5 FL (78-98); MONOCYTES % (AUTO) 2.7 % (2-12); NEUTROPHILS % (AUTO) 91.1 % (42-75); PLATELET COUNT 165 X10'3 (140-440); RED BLOOD COUNT 3.29 X10'6 (4.70-6.10); RED CELL DISTRIBUTION WIDTH 15.7 % (11.5-14.5); WHITE BLOOD COUNT 14.2 X10'3 (4.5-11.0)
[2021-08-16 02:24] LABS: ALANINE AMINOTRANSFERASE 47 U/L (12-78); ALBUMIN/GLOBULIN RATIO 0.3 (1.1-1.5); ALKALINE PHOSPHATASE 86 IU/L (46-116); ANION GAP 8 (8-16); ASPARTATE AMINO TRANSFERASE 23 U/L (10-37); BILIRUBIN,TOTAL 0.4 MG/DL (0.1-1.0); BLOOD UREA NITROGEN 119 MG/DL (7-18); BUN/CREATININE RATIO 66.5 (5.4-32.0); C-REACTIVE PROTEIN 8.28 MG/DL (0.0-0.5); CALCIUM 7.4 MG/DL (8.5-10.1); CHLORIDE 114 MMOL/L (99-107); CREATININE 1.79 MG/DL (0.60-1.10); GLUCOSE 146 MG/DL (70-104); MAGNESIUM 1.8 MG/DL (1.5-2.4); POTASSIUM 3.7 MMOL/L (3.5-5.1); SODIUM 148 MMOL/L (135-145); TOTAL CARBON DIOXIDE 26.5 MMOL/L (24-32); eGFR 37 ML/MIN
[2021-08-16 02:27] LABS: D-DIMER 5.49 MG/L FEU (0-0.50)
[2021-08-16 03:09] LABS: HYPOCHROMASIA 1+; PLATELET ESTIMATE NORMAL; POLYCHROMASIA FEW; TOTAL CELLS COUNTED 100
[2021-08-16] MEDS: pantoprazole 40MG/NS 100ML BAG 100 ML IV SCH (03:20)
[2021-08-16] MEDS: insulin regular, human U-100 3ml vial - multi-dose SQ SCH ×3 (03:23→20:09)
[2021-08-16 04:03] LABS: ABG BASE EXCESS -1.6 mmol/L (-2.0-2.0); ABG HCO3 23.6 mmol/L (22.0-26.0); ABG OXYGEN SATURATION 92.1 % (94-97); ABG PO2 (T) 69.7 mmHg (75.0-100.0); ALLEN'S TEST Yes; FCOHb 0.3 % (0.0-3.9); FMetHb 0.3 % (0.0-1.5); FO2Hb 91.5 % (94-97); PATIENT TEMPERATURE 37.4; PEEP 10 cm H2O; RESPIRATORY RATE 16 b/min; TIDAL VOLUME 500 mL; TOTAL HEMOGLOBIN 8.7 G/dl (14.0-18.0)
[2021-08-16] MEDS: midazolam 100mg in NS 100ml 100 ML IV PRN ×4 (04:24→23:16)
[2021-08-16] MEDS: dexmedetomidine/D5W 100mL 100 ML IV SCH ×2 (05:32→21:36)
[2021-08-16] MEDS: NORepinephrine 8mg/ 250ml NS 250 ML IV SCH ×2 (07:58→23:45)
[2021-08-16] MEDS: QUEtiapine 25mg tablet OGT SCH ×2 (08:00→19:38)
[2021-08-16] MEDS: folic acid 1mg tablet OGT SCH (08:00)
[2021-08-16] MEDS: MULTIVIT-MIN/FERROUS GLUCONATE 9 MG/15 ML LIQUID OGT SCH (08:00)
[2021-08-16] MEDS: methylPREDNISolone sod succ/PF 40mg inj. IV SCH (08:00)
[2021-08-16] MEDS: cholecalciferol (vitamin D3) 1,000 unit (25mcg) tablet OGT SCH (08:00)
[2021-08-16] MEDS: lactobacillus rhamnosus 10,000 MMU CELLS/CAPSULE OGT SCH ×2 (08:00→19:38)
[2021-08-16] MEDS: docusate sodium 100mg/10ml UD cup OGT SCH ×2 (08:00→19:38)
[2021-08-16] MEDS: thiamine 100mg tablet OGT SCH (08:00)
[2021-08-16] MEDS: cefepime 2g/NS 100ml ADVANTAGE 100 ML IV SCH (08:00)
[2021-08-16] MEDS: furosemide 40mg/4ml inj IV SCH ×3 (08:00→23:16)
[2021-08-16] MEDS: aspirin 81mg tab.chew OGT SCH (08:30)
[2021-08-16] MEDS: sevelamer carbonate 0.8gm powder pkt OGT SCH ×3 (08:30→17:52)
[2021-08-16] MEDS: sodium ferric gluc complex inj 125 MG in normal saline 100ml IV soln 90 ML IV SCH (08:54)
[2021-08-16] MEDS: vancomycin/NS 1 GM ADD-VANTAGE 250 ML X 1 DOSE IV SCH (13:35)
[2021-08-16] MEDS: fentaNYL/NS/PF 2,500 mcg/250mL 250 ML IV PRN ×3 (13:36→21:21)
[2021-08-16] MEDS: enoxaparin 30mg/0.3ml syringe SUBCUT SCH (19:39)
[2021-08-16] MEDS: insulin glargine (Lantus) pen - multi-dose SQ SCH (20:11)
[2021-08-17] VITALS (25 sets, daily range): BP systolic 94–177; BP diastolic 45–89
[2021-08-17] MEDS: dexmedetomidine/D5W 100mL 100 ML IV SCH ×5 (01:38→21:48)
[2021-08-17] MEDS: mineral oil/petrolatum ophthal oint EACHEYE SCH ×4 (01:39→18:51)
[2021-08-17] MEDS: insulin regular, human U-100 3ml vial - multi-dose SQ SCH ×4 (01:54→19:48)
[2021-08-17 02:28] LABS: ABG BASE EXCESS 0.7 mmol/L (-2.0-2.0); ABG HCO3 26.2 mmol/L (22.0-26.0); ABG OXYGEN SATURATION 95.2 % (94-97); ABG PO2 (T) 79.3 mmHg (75.0-100.0); ALLEN'S TEST POSITIVE; FCOHb 0.3 % (0.0-3.9); FMetHb 0.2 % (0.0-1.5); FO2Hb 94.7 % (94-97); PATIENT TEMPERATURE 36.7; PEEP 10 cm H2O; RESPIRATORY RATE 16 b/min; TIDAL VOLUME 500 mL; TOTAL HEMOGLOBIN 10.6 G/dl (14.0-18.0)
[2021-08-17 04:07] LABS: BASOPHILS # (AUTO) 0.1 X10'3 (0-0.2); BASOPHILS % (AUTO) 0.4 % (0-1); EOSINOPHILS # (AUTO) 0.2 X10'3 (0-0.9); EOSINOPHILS % (AUTO) 1.2 % (0-6); HEMATOCRIT 25.4 % (42.0-52.0); HEMOGLOBIN 8.4 g/dl (14.0-17.9); LYMPHOCYTES # (AUTO) 0.9 X10'3 (1.1-4.8); LYMPHOCYTES % (AUTO) 4.9 % (21-51); MEAN CORPUSCULAR HEMOGLOBIN 29.7 PG (27.0-31.0); MEAN CORPUSCULAR HGB CONC 32.9 g/dL (33.0-36.5); MEAN CORPUSCULAR VOLUME 90.1 FL (78-98); MEAN PLATELET VOLUME 8.2 FL (7.4-10.4); MONOCYTES # (AUTO) 0.6 X10'3 (0-0.9); MONOCYTES % (AUTO) 3.5 % (2-12); NEUTROPHILS # (AUTO) 16.1 X10'3 (1.8-7.7); PLATELET COUNT 252 X10'3 (140-440); RED BLOOD COUNT 2.82 X10'6 (4.70-6.10); RED CELL DISTRIBUTION WIDTH 15.4 % (11.5-14.5); WHITE BLOOD COUNT 17.9 X10'3 (4.5-11.0)
[2021-08-17 04:37] LABS: D-DIMER 4.01 MG/L FEU (0-0.50)
[2021-08-17 04:39] LABS: ALANINE AMINOTRANSFERASE 51 U/L (12-78); ALBUMIN 1.1 G/DL (3.4-5.0); ALBUMIN/GLOBULIN RATIO 0.2 (1.1-1.5); ALKALINE PHOSPHATASE 102 IU/L (46-116); ANION GAP 10 (8-16); ASPARTATE AMINO TRANSFERASE 26 U/L (10-37); BILIRUBIN,TOTAL 0.4 MG/DL (0.1-1.0); BLOOD UREA NITROGEN 109 MG/DL (7-18); BUN/CREATININE RATIO 70.3 (5.4-32.0); CALCIUM 7.9 MG/DL (8.5-10.1); CHLORIDE 113 MMOL/L (99-107); CREATININE 1.55 MG/DL (0.60-1.10); GLUCOSE 136 MG/DL (70-104); POTASSIUM 3.9 MMOL/L (3.5-5.1); SODIUM 151 MMOL/L (135-145); TOTAL CARBON DIOXIDE 28.2 MMOL/L (24-32); TOTAL PROTEIN 5.7 G/DL (6.4-8.2); eGFR 44 ML/MIN
[2021-08-17 04:42] LABS: C-REACTIVE PROTEIN 13.02 MG/DL (0.0-0.5); MAGNESIUM 1.8 MG/DL (1.5-2.4); PHOSPHORUS 4.5 MG/DL (2.3-4.5)
[2021-08-17 04:53] LABS: PLATELET ESTIMATE NORMAL; TOTAL CELLS COUNTED 100
[2021-08-17 04:54] LABS: POLYCHROMASIA FEW
[2021-08-17] MEDS: midazolam 100mg in NS 100ml 100 ML IV PRN ×4 (05:04→21:14)
[2021-08-17] MEDS: pantoprazole 40 MG vial IV SCH (08:40)
[2021-08-17] MEDS: methylPREDNISolone sod succ/PF 40mg inj. IV SCH (08:40)
[2021-08-17] MEDS: furosemide 40mg/4ml inj IV SCH ×3 (08:40→23:26)
[2021-08-17] MEDS: cefepime 2g/NS 100ml ADVANTAGE 100 ML IV SCH (08:41)
[2021-08-17] MEDS: aspirin 81mg tab.chew OGT SCH (08:41)
[2021-08-17] MEDS: folic acid 1mg tablet OGT SCH (08:41)
[2021-08-17] MEDS: docusate sodium 100mg/10ml UD cup OGT SCH ×2 (08:41→18:53)
[2021-08-17] MEDS: sevelamer carbonate 0.8gm powder pkt OGT SCH ×3 (08:41→17:23)
[2021-08-17] MEDS: QUEtiapine 25mg tablet OGT SCH ×2 (08:41→18:54)
[2021-08-17] MEDS: MULTIVIT-MIN/FERROUS GLUCONATE 9 MG/15 ML LIQUID OGT SCH (08:41)
[2021-08-17] MEDS: cholecalciferol (vitamin D3) 1,000 unit (25mcg) tablet OGT SCH (08:41)
[2021-08-17] MEDS: lactobacillus rhamnosus 10,000 MMU CELLS/CAPSULE OGT SCH ×2 (08:41→18:54)
[2021-08-17] MEDS: thiamine 100mg tablet OGT SCH (08:41)
[2021-08-17 09:04] LABS: CLARITY,URINE CLOUDY (Clear); COLOR,URINE YELLOW (Yellow); UA COLLECTION TYPE FOLEY CATH
[2021-08-17 09:05] LABS: GLUCOSE, URINE NEGATIVE (Neg); KETONES,URINE NEGATIVE (Neg); LEUKOCYTE ESTERASE ,URINE SMALL (Neg); NITRITES, URINE NEGATIVE (Neg); OCCULT BLOOD,URINE LARGE (Neg); PROTEIN,URINE 30 mg/dl (Neg); UROBILINOGEN,URINE 0.2 E.U/dL (0.2-1.0)
[2021-08-17 09:07] LABS: BACTERIA,URINE 1+ /HPF (Neg); MUCUS STRANDS NONE SEEN /LPF (Neg); SQUAMOUS EPITHELIAL CELL,UR FEW /LPF (FEW); WBC,URINE 30-50 /HPF (0-4)
[2021-08-17 09:08] LABS: YEAST MANY /HPF (NEGATIVE)
[2021-08-17 09:09] LABS: TRANSITIONAL EPI CELLS,URINE FEW /HPF
--- NOTE | 2021-08-17 12:34 | NUR ---
F/u 08/17: Pt tolerating TF at goal GRV WNL. Rectal tube in place last volume 200ml 08/10 w/ aston/smears only documented since 08/06. RD reviewed w/ RN given GRV of 0ml this AM unsure if true constipation receiving routine colace. RN reports 50ml output so far this AM. Serum Na 151 negative fluid balance past few days down to +12.4L fluid balance from prior +18.5L balance. 200ml Q4H free water restarted today per MD. Will continue to monitor for TF tolerance and adjustment needs on vent. Recommendations: 1) Continuous TF using Vital AF via OGT with goal rate of 80 mL/hr to provide 1920ml volume, 2304kcals, 144g protein, 1555ml H2O. To begin at 20 mL/hr and advance by 20 mL Q8H as tolerated to goal rate 2) Additional water flush 200ml Q4H per outside energy sales representatives; +12.4L fluid balance down from prior +18.5L 3) Prealbumin q Friday/, daily scaled weights 4) Routine bowel care 5) Routine Phos binder per MD 6) Continue routine MVM with iron, Thiamine, and Folic acid for EtOH hx per MD Addendum: 08/17/21 at [address] Amended: Links added.
[2021-08-17] MEDS: vancomycin/NS 1 GM ADD-VANTAGE 250 ML X 1 DOSE IV SCH (13:10)
[2021-08-17] MEDS: NORepinephrine 8mg/ 250ml NS 250 ML IV SCH ×2 (15:32→18:53)
[2021-08-17] MEDS: fentaNYL/NS/PF 2,500 mcg/250mL 250 ML IV PRN ×2 (16:58→22:26)
--- NOTE | 2021-08-17 18:11 | NUR ---
Problems reprioritized. Patient report given, questions answered & plan of care reviewed with Mel RANKIN.
[2021-08-17] MEDS: enoxaparin 30mg/0.3ml syringe SUBCUT SCH (18:52)
[2021-08-17] MEDS: insulin glargine (Lantus) pen - multi-dose SQ SCH (19:46)
[2021-08-18] VITALS (22 sets, daily range): BP systolic 100–145; BP diastolic 49–78
[2021-08-18] MEDS: midazolam 100mg in NS 100ml 100 ML IV PRN ×2 (00:43→04:07)
[2021-08-18] MEDS: mineral oil/petrolatum ophthal oint EACHEYE SCH ×4 (02:32→20:00)
[2021-08-18 03:45] LABS: ABG BASE EXCESS 1.6 mmol/L (-2.0-2.0); ABG HCO3 27.4 mmol/L (22.0-26.0); ABG OXYGEN SATURATION 87.2 % (94-97); ABG PCO2 (T) 49.1 mmHg (35.0-48.0); ABG PO2 (T) 60.4 mmHg (75.0-100.0); ALLEN'S TEST POSITIVE; FCOHb 0.3 % (0.0-3.9); FMetHb 0.1 % (0.0-1.5); FO2Hb 86.9 % (94-97); PEEP 8 cm H2O; RESPIRATORY RATE 16 b/min; TIDAL VOLUME 500 mL; TOTAL HEMOGLOBIN 8.4 G/dl (14.0-18.0)
[2021-08-18] MEDS: dexmedetomidine/D5W 100mL 100 ML IV SCH (04:07)
[2021-08-18 04:23] LABS: ALANINE AMINOTRANSFERASE 45 U/L (12-78); ALBUMIN 1.1 G/DL (3.4-5.0); ALBUMIN/GLOBULIN RATIO 0.3 (1.1-1.5); ALKALINE PHOSPHATASE 89 IU/L (46-116); ANION GAP 10 (8-16); ASPARTATE AMINO TRANSFERASE 23 U/L (10-37); BILIRUBIN,TOTAL 0.3 MG/DL (0.1-1.0); BLOOD UREA NITROGEN 104 MG/DL (7-18); BUN/CREATININE RATIO 71.2 (5.4-32.0); C-REACTIVE PROTEIN 6.96 MG/DL (0.0-0.5); CHLORIDE 115 MMOL/L (99-107); CREATININE 1.46 MG/DL (0.60-1.10); GLUCOSE 155 MG/DL (70-104); PHOSPHORUS 4.4 MG/DL (2.3-4.5); POTASSIUM 4.3 MMOL/L (3.5-5.1); TOTAL CARBON DIOXIDE 29.7 MMOL/L (24-32); TOTAL PROTEIN 5.2 G/DL (6.4-8.2); eGFR 47 ML/MIN
[2021-08-18 04:25] LABS: D-DIMER 3.92 MG/L FEU (0-0.50)
[2021-08-18 04:29] LABS: SODIUM 155 MMOL/L (135-145)
[2021-08-18 04:33] LABS: EOSINOPHILS # (AUTO) 0.1 X10'3 (0-0.9); HEMATOCRIT 22.5 % (42.0-52.0); HEMOGLOBIN 7.4 g/dl (14.0-17.9); MEAN CORPUSCULAR HEMOGLOBIN 30.1 PG (27.0-31.0); MONOCYTES # (AUTO) 0.4 X10'3 (0-0.9); MONOCYTES % (AUTO) 3.2 % (2-12)
[2021-08-18 04:35] LABS: BASOPHILS # (AUTO) 0.1 X10'3 (0-0.2); BASOPHILS % (AUTO) 0.5 % (0-1); EOSINOPHILS % (AUTO) 0.8 % (0-6); LYMPHOCYTES # (AUTO) 0.8 X10'3 (1.1-4.8); MEAN CORPUSCULAR HGB CONC 32.9 g/dL (33.0-36.5); MEAN CORPUSCULAR VOLUME 91.5 FL (78-98); MEAN PLATELET VOLUME 8.4 FL (7.4-10.4); NEUTROPHILS # (AUTO) 10.6 X10'3 (1.8-7.7); NEUTROPHILS % (AUTO) 88.5 % (42-75); PLATELET COUNT 217 X10'3 (140-440); RED BLOOD COUNT 2.46 X10'6 (4.70-6.10); RED CELL DISTRIBUTION WIDTH 15.6 % (11.5-14.5)
[2021-08-18] MEDS: furosemide 40mg/4ml inj IV SCH ×3 (04:40→20:00)
--- NOTE | 2021-08-18 04:42 | NUR ---
DR. KIERAN CASANOVA NOTIFIED REGARDING NA 155, AND NO NEW ORDER RECEIVE
--- NOTE | 2021-08-18 04:47 | NUR ---
Laxis not given at this time because it was administered lessthan 12 hours ago
--- NOTE | 2021-08-18 05:22 | NUR ---
Metolazone tab not in medication dispenser, pharmacy notified and will send some
[2021-08-18] MEDS: metolazone 2.5mg tablet PO SCH ×3 (05:41→20:00)
--- NOTE | 2021-08-18 05:56 | NUR ---
Report given to
--- NOTE | 2021-08-18 06:16 | NUR ---
REPORT GIVEN TO TARSHA/CHUCHO
--- NOTE | 2021-08-18 07:01 | NUR ---
Pt intubated and sedated, not following commands. Pt will need teaching reinforcement when alert and comprehending information. Addendum: 08/18/21 at 0702 by Amanda NAGEL RN Amended: Links added.
[2021-08-18] MEDS: cholecalciferol (vitamin D3) 1,000 unit (25mcg) tablet OGT SCH (07:57)
[2021-08-18] MEDS: QUEtiapine 25mg tablet OGT SCH ×2 (07:57→20:00)
[2021-08-18] MEDS: pantoprazole 40 MG vial IV SCH (07:57)
[2021-08-18] MEDS: lactobacillus rhamnosus 10,000 MMU CELLS/CAPSULE OGT SCH ×2 (07:57→20:00)
[2021-08-18] MEDS: methylPREDNISolone sod succ/PF 40mg inj. IV SCH (07:57)
[2021-08-18] MEDS: MULTIVIT-MIN/FERROUS GLUCONATE 9 MG/15 ML LIQUID OGT SCH (07:57)
[2021-08-18] MEDS: folic acid 1mg tablet OGT SCH (07:57)
[2021-08-18] MEDS: docusate sodium 100mg/10ml UD cup OGT SCH ×2 (07:57→20:00)
[2021-08-18] MEDS: thiamine 100mg tablet OGT SCH (07:57)
[2021-08-18] MEDS: cefepime 2g/NS 100ml ADVANTAGE 100 ML IV SCH (07:58)
[2021-08-18] MEDS: aspirin 81mg tab.chew OGT SCH (07:58)
[2021-08-18] MEDS: sevelamer carbonate 0.8gm powder pkt OGT SCH ×3 (07:58→17:15)
[2021-08-18] MEDS ORDERED: metolazone 2.5mg tablet PO SCH (08:00)
[2021-08-18] MEDS: enoxaparin 30mg/0.3ml syringe SUBCUT SCH ×2 (08:15→20:00)
[2021-08-18] MEDS ORDERED: LORazepam 2 mg/ml vial IV PRN (09:10)
[2021-08-18] MEDS ORDERED: morphine 4 MG/ML inj SYRINge IV PRN (09:10)
[2021-08-18] MEDS ORDERED: VANCOMYCIN LEVEL IV ONE (13:30)
[2021-08-18] MEDS: vancomycin/NS 1 GM ADD-VANTAGE 250 ML X 1 DOSE IV SCH (14:00)
[2021-08-18 16:13] LABS: PLATELET ESTIMATE NORMAL; TOTAL CELLS COUNTED 100
[2021-08-18 16:14] LABS: NUCLEATED RED BLOOD CELLS 1 /100WBC (0-0); POLYCHROMASIA FEW; ROULEAUX 1+
--- NOTE | 2021-08-18 18:17 | NUR ---
Patient in room ICU 2043. I have received report from Amanda RANKIN and had the opportunity to ask questions and assume patient care.
--- NOTE | 2021-08-18 20:08 | NUR ---
Family members at bedside saying goodbye to patient. beverage host spoke to family regarding withdrawing total patient care tonight. Will continue to monitor patient. MD aware that patient may be extubated and pass tonight.
--- NOTE | 2021-08-18 20:11 | NUR ---
Famly at bedside, they reviewed Dr. Jimenez conversation and pt is a DNR with comfort care. It is their wish to have the family come in and say good buy to pt then withdraw care. Spoke to Dr. Rausch OK stop fentanyl and versed 30 min prior to extubation then initiate comfort care pathways. RN to pronounce at time of .
[2021-08-18] MEDS: insulin glargine (Lantus) pen - multi-dose SQ SCH (20:39)
[2021-08-18] MEDS: LORazepam 2 mg/ml vial IV PRN ×2 (21:04→21:50)
[2021-08-18] MEDS: morphine 4 MG/ML inj SYRINge IV PRN ×2 (21:05→21:50)
--- NOTE | 2021-08-18 22:23 | NUR ---
Patient at 2220 with daughter and son at bedside.
== END 2021-08-18 22:20 | DRG 870 ==
LOC: UNDOADMIN 21:57 → CICU 2S 21:57 → ICU 2S 08-16 05:22
PROVIDERS: ADMIT Surgery; ATTEND Surgery
PROC: 5A1955Z Respiratory Ventilation, Greater than 96 Consecutive Hours (ICD-10-PCS; principal; 2021-07-27)
PROC: 0B9D8ZX Drainage of Right Middle Lung Lobe, Via Natural or Artificial Opening Endoscopic, Diagnostic (ICD-10-PCS; 2021-08-01)
PROC: 0B9C8ZX Drainage of Right Upper Lung Lobe, Via Natural or Artificial Opening Endoscopic, Diagnostic (ICD-10-PCS; 2021-08-01)
PROC: 0B9G8ZX Drainage of Left Upper Lung Lobe, Via Natural or Artificial Opening Endoscopic, Diagnostic (ICD-10-PCS; 2021-08-01)
PROC: 02HV33Z Insertion of Infusion Device into Superior Vena Cava, Percutaneous Approach (ICD-10-PCS; 2021-08-03)
PROC: B548ZZA Ultrasonography of Superior Vena Cava, Guidance (ICD-10-PCS; 2021-08-03)
PROC: 30233N1 Transfusion of Nonautologous Red Blood Cells into Peripheral Vein, Percutaneous Approach (ICD-10-PCS; 2021-08-12)
DX: A41.89 Other specified sepsis (principal); U07.1 COVID-19; J12.82 Pneumonia due to coronavirus disease 2019; J80 Acute respiratory distress syndrome; I63.9 Cerebral infarction, unspecified; N17.9 Acute kidney failure, unspecified; R57.9 Shock, unspecified; G93.40 Encephalopathy, unspecified; E87.0 Hyperosmolality and hypernatremia; T17.890A Other foreign object in other parts of respiratory tract causing asphyxiation, initial encounter; R00.1 Bradycardia, unspecified; R34 Anuria and oliguria; X58.XXXA Exposure to other specified factors, initial encounter; R19.7 Diarrhea, unspecified; R77.8 Other specified abnormalities of plasma proteins; K21.9 Gastro-esophageal reflux disease without esophagitis; N18.30 Chronic kidney disease, stage 3 unspecified; J98.2 Interstitial emphysema; D64.9 Anemia, unspecified; E87.5 Hyperkalemia; Z78.9 Other specified health status; Z51.5 Encounter for palliative care; Z79.899 Other long term (current) drug therapy
CPT/HCPCS: 31628; 31645; 36415; 36430; 36573; 36600; 70450; 71045; 74018; 76770; 80048; 80053; 80076; 80202; 81001; 82150; 82272; 82570; 82728; 82803; 82948; 83540; 83550; 83605; 83615; 83690; 83735; 84100; 84134; 84145; 84156; 84300; 84484; 84540; 85007; 85008; 85018; 85025; 85379; 85610; 85730; 86140; 86885; 86900; 86901; 86920; 87040; 87070; 87081; 87088; 87102; 87207; 88108; 88305; 88313; 89051; 93005; 93306; 93971; 94002; 94003; 94760; 94799; C9113; G0378; J0692; J1100; J1644; J1650; J1815; J1940; J2060; J2270; J2543; J2916; J2920; J2930; J2997; J3010; J3370; J3411; J3490; P9016; Q0112; Q4081